=== PATIENT | female | born 1985 | race Caucasian/White ===

== ENCOUNTER 2017-08-25 14:16 | Emergency (ER) | payer OTHER ==
[~2017-08-25] VITALS: Ht 149.9 cm; Wt 49.1 kg
[2017-08-25 14:18] VITALS: TEMP 36.4; Ht 149.9 cm; Wt 49.1 kg
[2017-08-25] MEDS ORDERED: ALBUT/IPRATROP 3MG/0.5MG NEB 3 ML VIAL INH STA (14:35)
[2017-08-25 14:49] LABS: BASO % 0.1 %; BASO ABS # 0.01 K/uL (0-0.2); EOS % 0.6 %; EOS ABS # 0.05 K/uL (0-0.5); HEMATOCRIT 40.7 % (37-47); HEMOGLOBIN 14.5 g/dL (12.0-16.0); IG# 0.03 K/uL (0.00-0.02); LYMPH % 22.9 %; LYMPH ABS # 1.89 K/uL (1.2-3.4); MEAN CELL VOLUME 82.4 fL (80-100); MEAN CORPUSCULAR HEMOGLOBIN 29.4 pg (25-34); MEAN CORPUSCULAR HGB CONC 35.6 g/dl (32-36); MONO % 6.8 %; MONO ABS # 0.56 K/uL (0.11-0.59); NEUT % 69.2 %; NEUT ABS # 5.73 K/uL (1.4-6.5); PLATELET COUNT 256 K/uL (130-400); RED CELL DISTRIBUTION WIDTH SD 39.3 fL (36.4-46.3); WHITE BLOOD COUNT 8.27 K/uL (4.8-10.8)
[2017-08-25 14:59] VITALS: O2SAT 97
[2017-08-25 15:08] LABS: ALBUMIN 4.1 gm/dl (3.4-5.0); ALT/SGPT 36 U/L (12-78); AST/SGOT 9 U/L (15-37); BLOOD UREA NITROGEN 8 mg/dl (7-18); CALCIUM 9.4 mg/dl (8.5-10.1); CARBON DIOXIDE 22 mmol/L (21-32); CREATININE 0.55 mg/dl (0.60-1.20); GLUCOSE 156 mg/dl (70-99); POTASSIUM 3.9 mmol/L (3.5-5.1); SODIUM 134 mmol/L (136-145)
[2017-08-25 15:13] LABS: ALKALINE PHOSPHATASE 70 U/L (45-117); TOTAL PROTEIN 7.6 gm/dl (6.4-8.2)
[2017-08-25] MEDS ORDERED: METO25TA56 PO (15:24)
[2017-08-25] MEDS ORDERED: NVLG SC (15:24)
[2017-08-25] MEDS ORDERED: LSN25 PO (15:24)
[2017-08-25] MEDS ORDERED: LVMI SC (15:24)
[2017-08-25] MEDS ORDERED: SITA50TA3 PO (15:24)
[2017-08-25] MEDS ORDERED: METF-384 PO (15:24)
[2017-08-25] MEDS ORDERED: BUSP15TA70 PO (15:24)
[2017-08-25] MEDS ORDERED: CITA40TA4 PO (15:24)
--- NOTE | 2017-08-25 15:41 | EMERGENCY ROOM VISIT NOTE ---
ED Visit Note First contact with patient: 14:25 CHIEF COMPLAINT: Shortness of breath HISTORY OF PRESENTING ILLNESS: This is a 32-year-old female with past medical history of neurofibromatosis, hypertension, depression, scoliosis, and insulin- dependent type 2 diabetes who presents to the emergency department with complaint of shortness of breath and chest tightness for the past 3 days. Patient states her symptoms have been constant, shortness of breath is worse with exertion. She describes the chest pain as pressure and tightness, constant , in the middle of her chest, worse with coughing, better with rest, 7/10. She denies any fevers or chills. The cough is not productive and she denies any hemoptysis. Patient recently relocated to this area from [place], stating that she drove here about 1 month ago. She is concerned because she has run out of her insulin medications for treating her diabetes about 1 month ago as well and she has not yet been established with a PCP. She states that she was taking Levemir and Novolin, as well as metformin and Januvia for her diabetes. She states that she has a limited amount of her oral medications and has been "spacing these out to make them last longer." She does state that she has been checking her blood sugars at home and these have been doing okay, she states her most recent blood sugar checked yesterday was 167. She reports a history of DKA in the past. She does report along with her cough and shortness of breath that she has also had some symptoms of nausea and diarrhea for the past 3 days, she denies any vomiting. She denies any other symptoms of headache, neck pain, back pain, abdominal pain, urinary symptoms, or rash. REVIEW OF SYSTEMS: A complete 10 point review of systems was reviewed with the patient with pertinent positives and negatives as per history of present illness. All else were negative. PAST MEDICAL HISTORY: Reviewed in chart. SOCIAL HISTORY: Lives at home with significant other. She is a current everyday smoker. She denies alcohol or recreational drug use. ALLERGIES: No known allergies. PHYSICAL EXAM: CONSTITUTIONAL: Pleasant and cooperative. No acute distress. Mildly dehydrated. Cachectic. HEENT: Normocephalic, atraumatic. Pupils equal, round and reactive to light, EOMI. TMs normal. Pharynx normal. Tacky mucous membranes. NECK: Supple, full active range of motion without discomfort. RESPIRATORY: Diminished in bases, but otherwise clear to auscultation bilaterally with no wheezing, crackles, rhonchi or stridor. Equal expansion bilaterally. CARDIOVASCULAR: Regular rate and rhythm with no murmurs, rubs or gallops. Normal peripheral perfusion. No edema. GASTROINTESTINAL: Soft, nontender, nondistended. No palpable masses or HSM. Bowel sounds present in all quadrants. MUSCULOSKELETAL: Full range of motion of all joints without discomfort. INTEGUMENTARY: Multiple scabbed lesions on the arms and legs, no erythema, swelling, tenderness to palpation, or drainage noted. NEUROLOGIC: Alert and oriented X 4 with normal affect. Cranial nerves II-XII grossly intact. No focal neurologic deficits noted. Normal strength and sensation in all 4 extremities. Normal speech. ED COURSE AND MEDICAL DECISION MAKING: CC: Patient presenting with complaint of shortness of breath, cough, chest pain DIFFERENTIAL DIAGNOSIS: Includes, but not limited to acute coronary syndrome, pulmonary embolism, pneumothorax, pericarditis, pneumonia, bronchitis, COPD exacerbation, anxiety, musculoskeletal pain, GERD, dehydration, electrolyte abnormality, DKA, among others. INTERPRETATION OF LABS: No leukocytosis, no anemia, no significant electrolyte abnormalities, normal renal function, normal liver enzymes and lipase. Negative troponin. Negative d-dimer. UA shows trace ketones, no glucose, and no infection. Urine negative. IMAGING: CHEST 2 VIEWS ROUTINE CLINICAL HISTORY: EVALUATE RESPIRATORY DISTRESS.DYSPNEA COMPARISON STUDY: No previous studies for comparison. FINDINGS: The bones soft tissues and hemidiaphragms are normal. The cardiomediastinal silhouette is normal. The lungs are clear. The pulmonary vasculature is normal. IMPRESSION: Negative chest. EKG: Shows normal sinus rhythm with a rate of 81 bpm, no acute ischemic changes noted by my interpretation. No previous EKGs available for comparison. MEDICATION RECONCILIATION: I attest that I have personally reviewed the patient 's current medication list. INITIAL VITAL SIGNS REVIEW: I reviewed the patient's initial vital signs and interpret them as follows: T: Afebrile; BP: Normotensive; HR: Within normal limits; RR: Within normal limits; Pulse Ox: Within normal limits on room air. Blood pressure screening: The patient was found to have normal blood pressure on screening and does not require follow-up for repeat blood pressure check. SUMMARY: Patient was evaluated at bedside, history and physical exam performed. Patient is alert and oriented, no acute distress, resting calmly a stretcher. She is cachectic appearing and appears mildly dehydrated. 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 Lungs are diminished but otherwise clear. Orders were placed at bedside for labs, UA and urine , PO fluids for hydration, chest x-ray, EKG to evaluate for chest pain and shortness of breath. Patient discussed with Dr. Hook, who agrees with my assessment and plan. Labs and imaging reviewed as above, unremarkable. No evidence of DKA. Patient symptoms seem consistent with an acute bronchitis, given her worsening cough and chest tightness. She does report improved symptoms after DuoNeb treatment. Patient reassessed multiple times throughout ED stay, she reports that she is feeling much better. She is tolerating PO hydration well. She was provided with an albuterol inhaler to use at home. Oleksandr with case management also spoke with the patient to assist her in establishing PCP follow-up. Patient was updated on all results and plan for discharge, and she was encouraged to continue seeking PCP for follow-up. I did explain to the patient that she should have prescriptions refilled and monitored by a PCP, and that I would not refill her insulin today. Patient was also given strict return precautions should her symptoms worsen, she verbalized understanding. Patient was discharged home in stable condition and ambulatory. Current/Historical Medications Scheduled Buspirone Hcl (Buspar), 15 MG PO DAILY Citalopram (Citalopram Hydrobromide), 40 MG PO DAILY Insulin Aspart (Novolog), Unknown Dose SC DIRECTED Insulin Detemir (Levemir), 40 UNITS SC HS Lisinopril (Lisinopril), 2.5 MG PO DAILY Metformin Hcl (Glucophage), 1,000 MG PO BID Metoprolol Tartrate (Lopressor) (Lopressor), 12.5 MG PO BID Sitagliptin (Januvia), 50 MG PO DAILY Allergies Coded Allergies: No Known Allergies (Unverified , 08/25/17) Vital Signs Date Time Temp Pulse Resp B/P (MAP) Pulse Ox O2 Delivery O2 Flow Rate FiO2 08/25/17 16:30 88 18 112/70 98 Room Air 08/25/17 15:06 83 08/25/17 14:59 97 Room Air 08/25/17 14:18 36.4 87 18 122/81 97 Room Air Laboratory Results 08/25/17 14:42 Red Blood Count 4.94, Mean Corpuscular Volume 82.4, Mean Corpuscular Hemoglobin 29.4, Mean Corpuscular Hemoglobin Concent 35.6, Mean Platelet Volume 10.0, Neutrophils (%) (Auto) 69.2, Lymphocytes (%) (Auto) 22.9, Monocytes (%) (Auto) 6.8, Eosinophils (%) (Auto) 0.6, Basophils (%) (Auto) 0.1, Neutrophils # (Auto) 5.73, Lymphocytes # (Auto) 1.89, Monocytes # (Auto) 0.56, Eosinophils # (Auto) 0.05, Basophils # (Auto) 0.01 08/25/17 14:42 Test 08/25/17 14:40 08/25/17 14:42 08/25/17 15:08 Urine Color DK YELLOW Urine Appearance CLOUDY (CLEAR) Urine pH 6.5 (4.5-7.5) Urine Specific [place] 1.025 (1.000-1.030) Urine Protein NEG (NEG) Urine Glucose (UA) NEG (NEG) Urine Ketones TRACE (NEG) Urine Occult Blood NEG (NEG) Urine Nitrite NEG (NEG) Urine Bilirubin NEG (NEG) Urine Urobilinogen NEG (NEG) Urine Leukocyte Esterase NEG (NEG) Urine WBC (Auto) 1-5 /hpf (0-5) Urine RBC (Auto) 0-4 /hpf (0-4) Urine Hyaline Casts (Auto) 1-5 /lpf (0-5) Urine Epithelial Cells (Auto) >30 /lpf (0-5) Urine Bacteria (Auto) 1+ (NEG) Urine Test NEG (NEG) White Blood Count 8.27 K/uL (4.8-10.8) Red Blood Count 4.94 M/uL (4.2-5.4) Hemoglobin 14.5 g/dL (12.0-16.0) Hematocrit 40.7 % (37-47) Mean Corpuscular Volume 82.4 fL (80-100) Mean Corpuscular Hemoglobin 29.4 pg (25-34) Mean Corpuscular Hemoglobin Concent 35.6 g/dl (32-36) Platelet Count 256 K/uL (130-400) Mean Platelet Volume 10.0 fL (7.4-10.4) Neutrophils (%) (Auto) 69.2 % Lymphocytes (%) (Auto) 22.9 % Monocytes (%) (Auto) 6.8 % Eosinophils (%) (Auto) 0.6 % Basophils (%) (Auto) 0.1 % Neutrophils # (Auto) 5.73 K/uL (1.4-6.5) Lymphocytes # (Auto) 1.89 K/uL (1.2-3.4) Monocytes # (Auto) 0.56 K/uL (0.11-0.59) Eosinophils # (Auto) 0.05 K/uL (0-0.5) Basophils # (Auto) 0.01 K/uL (0-0.2) RDW Standard Deviation 39.3 fL (36.4-46.3) RDW Coefficient of Variation 13.0 % (11.5-14.5) Immature Granulocyte % (Auto) 0.4 % Immature Granulocyte # (Auto) 0.03 K/uL (0.00-0.02) D-Dimer < 190 ug/L FEU (0-500) Anion Gap 10.0 mmol/L (3-11) Est Creatinine Clear Calc Drug Dose 101.2 ml/min Estimated GFR () 144.9 Estimated GFR (Non- 125.0 BUN/Creatinine Ratio 15.5 (10-20) Calcium Level 9.4 mg/dl (8.5-10.1) Total Bilirubin 0.4 mg/dl (0.2-1) Aspartate Amino Transf (AST/SGOT) 9 U/L (15-37) Alanine Aminotransferase (ALT/SGPT) 36 U/L (12-78) Alkaline Phosphatase 70 U/L (45-117) Troponin I < 0.015 ng/ml (0-0.045) Total Protein 7.6 gm/dl (6.4-8.2) Albumin 4.1 gm/dl (3.4-5.0) Globulin 3.5 gm/dl (2.5-4.0) Albumin/Globulin Ratio 1.2 (0.9-2) Bedside Glucose 149 mg/dl (70-90) Medications Administered Medications (Trade) Dose Ordered Sig/Song Route Start Time Stop Time Status Last Admin Dose Admin Albuterol/ Ipratropium (Duoneb) 3 ml NOW STAT INH 08/25/17 14:35 08/25/17 14:40 DC 08/25/17 15:14 3 ML Departure Information Impression Primary Impression: Bronchitis Dispostion Home / Self-Care Condition GOOD Referrals No Doctor, Assigned (PCP) Patient Instructions ED Bronchitis Asthmatic, ED Diabetes General Info, ED Diet Diabetic, ED URI Viral, My [facility] Additional Instructions You have been evaluated in the emergency department for your cough and chest pain. There is no evidence of pneumonia on your chest x-ray. Use the albuterol inhaler TWO puffs every 4 hours as needed for cough, wheezing , chest tightness. You should also use this before bed to help prevent coughing so that you can sleep better at night. For chest pain, you can use the following [id number] medicines (if >12 yo) : - Regular strength (325mg/tab) Tylenol (acetaminophen) 2 tabs every 4-6 hours as needed. Do not exceed 10 tablets in a 24 hour period. Avoid taking more than 3000 mg of Tylenol per day. This includes any other sources of acetaminophen you may take on a regular basis. - Regular strength (200 mg/tab) Advil (ibuprofen) 3 tabs every 6-8 hours as needed. Do not exceed a dose of 2400 mg per day. - For best results, alternate dosing of Tylenol and Advil. Apply heating pad to your chest to help with discomfort. Drink plenty of fluids to stay well hydrated. Please follow-up with your PCP in the next few days to be rechecked if your symptoms are not getting any better. You will also need to see a primary care provider to get refills of your chronic medications. Please return to the emergency department if your symptoms worsen, including excessive wheezing or inability to catch your breath; worsening chest pain, coughing up blood, persistent vomiting and unable to keep down fluids, severe dizziness or passing out; fever or pain that becomes unmanageable with over-the- counter medications; or any other concerns.
--- NOTE | 2017-08-25 15:45 | DIAGNOSTIC IMAGING REPORT ---
CHEST 2 VIEWS ROUTINE CLINICAL HISTORY: EVALUATE RESPIRATORY DISTRESS.DYSPNEA COMPARISON STUDY: No previous studies for comparison. FINDINGS: The bones soft tissues and hemidiaphragms are normal. The cardiomediastinal silhouette is normal. The lungs are clear. The pulmonary vasculature is normal. IMPRESSION: Negative chest. The above report was generated using voice recognition software. It may contain grammatical, syntax or spelling errors. Electronically signed by: Miko Lee M.D. 08/25/2017 3:44 PM Dictated Date/Time: 08/25/2017 3:44 PM
[2017-08-25 16:30] VITALS: BP 112/70; PULSE 88; O2SAT 98
[2017-08-25] MEDS ORDERED: ALBUTEROL HFA 8 GM INHALER INH ONE (16:30)
[2017-08-25] MEDS ORDERED: FENTANYL CITRATE INJ 50 MCG/1 ML 2 ML VIAL IV STA (17:12)
== END 2017-08-25 17:02 | disposition home or self-care (01) ==
LOC: C.EDB 14:18
DX: J40 Bronchitis, not specified as acute or chronic (principal); F17.200 Nicotine dependence, unspecified, uncomplicated

== ENCOUNTER → 2017-08-28 | Outpatient (CLI) | payer OTHER ==
[~2017-08-28] MED LIST: BUSP15TA70 PO; CITA40TA4 PO; LSN25 PO; LVMI SC; METF-384 PO; METO25TA56 PO; NVLG SC; SITA50TA3 PO
[2017-08-28 15:09] LABS: ALBUMIN 4.3 gm/dl (3.4-5.0); ALT/SGPT 29 U/L (12-78); BLOOD UREA NITROGEN 6 mg/dl (7-18); CALCIUM 9.5 mg/dl (8.5-10.1); CARBON DIOXIDE 22 mmol/L (21-32); CHOLESTEROL 163 mg/dl (0-200); CREATININE 0.41 mg/dl (0.60-1.20); GLUCOSE 104 mg/dl (70-99); POTASSIUM 4.2 mmol/L (3.5-5.1); SODIUM 134 mmol/L (136-145)
[2017-08-28 15:12] LABS: ALKALINE PHOSPHATASE 67 U/L (45-117); AST/SGOT 13 U/L (15-37); LDL CHOLESTEROL CALCULATED 90 mg/dl; TOTAL PROTEIN 7.8 gm/dl (6.4-8.2)
[2017-08-29 06:29] LABS: HEMOGLOBIN A1C 9.3 % (4.5-5.6)
== END | disposition home or self-care (01) ==
LOC: C.LAB 12:49
PROVIDERS: ATTEND Family Medicine
DX: E13.8 Other specified diabetes mellitus with unspecified complications (principal)

== ENCOUNTER 2017-10-05 20:38 | Emergency (ER) | payer OTHER ==
[~2017-10-05] VITALS: Ht 149.9 cm; Wt 49.9 kg
[2017-10-05 20:46] VITALS: TEMP 36.6; Ht 149.9 cm; Wt 49.9 kg
[2017-10-05] MEDS ORDERED: KETOROLAC TROMETHAMINE 30 MG/ML VIAL IV STA (22:02)
[2017-10-05] MEDS ORDERED: OPTIRAY 320 IV PRN (22:15)
[2017-10-05] MEDS ORDERED: INSU100I23 (22:35)
[2017-10-05] MEDS ORDERED: SRQ25 PO (22:35)
[2017-10-05 22:43] LABS: BASO % 0.4 %; BASO ABS # 0.03 K/uL (0-0.2); EOS % 0.9 %; EOS ABS # 0.07 K/uL (0-0.5); HEMATOCRIT 37.9 % (37-47); HEMOGLOBIN 13.7 g/dL (12.0-16.0); IG# 0.03 K/uL (0.00-0.02); LYMPH % 37.7 %; LYMPH ABS # 2.78 K/uL (1.2-3.4); MEAN CELL VOLUME 83.5 fL (80-100); MEAN CORPUSCULAR HEMOGLOBIN 30.2 pg (25-34); MEAN CORPUSCULAR HGB CONC 36.1 g/dl (32-36); MONO % 5.6 %; MONO ABS # 0.41 K/uL (0.11-0.59); NEUT ABS # 4.05 K/uL (1.4-6.5); PLATELET COUNT 228 K/uL (130-400); WHITE BLOOD COUNT 7.37 K/uL (4.8-10.8)
[2017-10-05 22:52] LABS: CALCIUM 9.3 mg/dl (8.5-10.1); CREATININE 0.52 mg/dl (0.60-1.20); POTASSIUM 3.8 mmol/L (3.5-5.1)
--- NOTE | 2017-10-05 23:18 | DIAGNOSTIC IMAGING REPORT ---
CT SCAN OF THE NECK WITH IV CONTRAST CLINICAL HISTORY: Right posterior neck pain. Clinical concern for abscess. COMPARISON STUDY: No priors. TECHNIQUE: Following the IV administration of 94 cc of Optiray 320, CT scan of the soft tissues of the neck was performed from the skull base to the upper chest. Images are reviewed in the axial, sagittal, and coronal planes. IV contrast was administered without complication. A dose lowering technique was utilized adhering to the principles of ALARA. CT DOSE: 357.74 mGy.cm FINDINGS: Soft tissues: The soft tissues are normal in appearance. There is abnormality identified in the right posterior neck deep to the marker at the indicated site of interest. There is mild induration of the subcutaneous fat in the occipital scalp seen on image #26. Pharynx: The nasopharynx, oropharynx, and laryngeal pharynx are normal in appearance. The pharyngeal airway is widely patent. There is no evidence of mass lesion. The vocal cords are symmetric. The parapharyngeal fat is well maintained. The prevertebral/retropharyngeal soft tissues are within normal limits. The epiglottis is normal. Lymphadenopathy: No cervical lymphadenopathy is seen Thyroid: Normal in size and attenuation. Salivary glands: The parotid and submandibular glands are within normal limits. Brain parenchyma: The visualized brain parenchyma at the skull base is normal in appearance. Vascular structures: The carotid arteries and jugular veins are patent bilaterally. Skeletal structures: Imaged portions of the calvarium at the skull base are within normal limits. The cervical spine appears intact. Sinuses and mastoids: The visualized paranasal sinuses are clear. There is a trace left mastoid effusion. The right mastoid air cells are well pneumatized. Lung apices: Emphysematous change is noted in the upper lobes. The imaged upper lobe lung parenchyma is otherwise clear. IMPRESSION: 1. No abnormality identified in the right posterior neck at the indicated site of interest. Specifically, there is no evidence of abscess. 2. There is mild induration of the subcutaneous fat in the right occipital scalp. This is nonspecific represent a small contusion. Correlate clinically for evidence of cellulitis. 3. Emphysema. Electronically signed by: Brock Christiansen M.D. 10/05/2017 11:16 PM Dictated Date/Time: 10/05/2017 11:10 PM
[2017-10-05] MEDS ORDERED: AMOX875T PO (23:31)
[2017-10-05] MEDS ORDERED: TRAM-10 PO (23:31)
[2017-10-05 23:44] VITALS: BP 156/98; PULSE 69; O2SAT 99
[2017-10-05] MEDS ORDERED: TRAMADOL HCL 50 MG HOME PACK PO ONE (23:45)
[2017-10-05] MEDS ORDERED: AMOXICIL/CLAVU 875MG HOME PACK PO ONE (23:45)
--- NOTE | 2017-10-05 23:47 | EMERGENCY ROOM VISIT NOTE ---
History First contact with patient: 21:13 Chief Complaint: NECK PAIN Stated Complaint: BUMP ON BACK OF NECK, HE, BODYACHE, STIFF NECK History of Present Illness The patient is a 32 year old female who presents to the Emergency Room with complaints of right posterior neck pain for the past 2-3 days. The patient reports that she had a cyst excised approximately 3-4 months ago in [place]. She tested positive for MRSA at that time. The patient reports that she has also had recent cough, sneezing and runny nose. She has taken OTC medications which helps with her cough. She has not noticed any fevers or chills, sore throat, difficulty swallowing, chest pain or headache. She denies any pain extending down the back. She rates her discomfort a 9 out of 10. Review of Systems HEENT: Denies dizziness, visual problems, hearing loss, tinnitus. Denies difficulty swallowing or oral lesions. PULMONARY: Denies sputum production or hemoptysis. CARDIOVASCULAR: Denies chest pain, palpitations, dyspnea on exertion, orthopnea or peripheral edema. GASTROINTESTINAL: Denies diarrhea, constipation, nausea, vomiting, or abdominal pain. GENITOURINARY: Denies dysuria, frequency, urgency or nocturia. NEUROLOGIC: Denies history of epilepsy, CVA, TIA or chronic headaches. MUSCULOSKELETAL: Denies history of joint tenderness/swelling. SKIN: Denies rashes or lesions. PSYCHIATRIC: History of depression and anxiety. ENDOCRINE: History of diabetes. Past Medical/Surgical History Medical Problems: (1) Anxiety (2) Depression (3) Diabetes (4) Hypertension (5) Neurofibromatosis (6) Tobacco use disorder Family History FH: cancer FH: diabetes mellitus FH: heart disease FH: hypertension Social History Smoking Status: Current Every Day Smoker Alcohol Use: none Drug Use: none Marital Status: single Housing Status: lives with friends Occupation Status: unemployed Current/Historical Medications Scheduled Amoxicillin & Pot Clavulanate (Augmentin 875-125 mg), 1 TAB PO BID Buspirone Hcl (Buspar), 15 MG PO DAILY Citalopram (Citalopram Hydrobromide), 40 MG PO DAILY Lisinopril (Lisinopril), 2.5 MG PO DAILY Metformin Hcl (Glucophage), 1,000 MG PO BID Metoprolol Tartrate (Lopressor) (Lopressor), 12.5 MG PO BID Quetiapine Fumarate (Quetiapine Fumarate), 25 MG PO HS Sitagliptin (Januvia), 50 MG PO DAILY Scheduled PRN Tramadol (Ultram), 1-2 TAB PO Q4H PRN for Pain Miscellaneous Medications Insulin Glargine (Basaglar Kwikpen) Physical Exam Vital Signs Date Time Temp Pulse Resp B/P (MAP) Pulse Ox O2 Delivery O2 Flow Rate FiO2 10/05/17 22:15 78 16 131/92 98 Room Air 10/05/17 20:46 36.6 98 18 125/86 98 Room Air Physical Exam CONSTITUTIONAL: Healthy and well nourished. Alert and oriented X 3 with flat affect. HEENT: Normocephalic, atraumatic. Pupils equal, round and reactive. Ears and nares are clear. No rhinorrhea or conjunctival injection. OROPHARYNX: No posterior pharyngeal erythema, tonsillar hypertrophy, trismus or evidence of retropharyngeal abscess/Musa's angina. NECK: Full active range of motion without discomfort. Negative Kernig's, negative Brudzinski sign. LYMPHATICS: No posterior or anterior cervical chain adenopathy. RESPIRATORY: Clear to auscultation bilaterally with no wheezing, crackles, rhonchi or stridor. CARDIOVASCULAR: Regular rate and rhythm with no murmurs, rubs or gallops. MUSCULOSKELETAL: Full range of motion of all joints without discomfort. INTEGUMENTARY: Examination of the posterior neck region does not show any overriding tissue erythema or induration. No other skin lesions, pustules, vesicles or desquamation noted. The patient has generalized tenderness to palpation of the entire posterior neck region. NEUROLOGIC: Cranial nerves II-XII grossly intact. No focal neurologic deficits noted. Medical Decision & Procedures ER Provider Diagnostic Interpretation: CT of the neck with IV contrast does not show any fluid collections. Radiologist report is as follows: CT SCAN OF THE NECK WITH IV CONTRAST CLINICAL HISTORY: Right posterior neck pain. Clinical concern for abscess. COMPARISON STUDY: No priors. TECHNIQUE: Following the IV administration of 94 cc of Optiray 320, CT scan of the soft tissues of the neck was performed from the skull base to the upper chest. Images are reviewed in the axial, sagittal, and coronal planes. IV contrast was administered without complication. A dose lowering technique was utilized adhering to the principles of ALARA. CT DOSE: 357.74 mGy.cm FINDINGS: Soft tissues: The soft tissues are normal in appearance. There is abnormality identified in the right posterior neck deep to the marker at the indicated site of interest. There is mild induration of the subcutaneous fat in the occipital scalp seen on image #26. Pharynx: The nasopharynx, oropharynx, and laryngeal pharynx are normal in appearance. The pharyngeal airway is widely patent. There is no evidence of mass lesion. The vocal cords are symmetric. The parapharyngeal fat is well maintained. The prevertebral/retropharyngeal soft tissues are within normal limits. The epiglottis is normal. Lymphadenopathy: No cervical lymphadenopathy is seen Thyroid: Normal in size and attenuation. Salivary glands: The parotid and submandibular glands are within normal limits. Brain parenchyma: The visualized brain parenchyma at the skull base is normal in appearance. Vascular structures: The carotid arteries and jugular veins are patent bilaterally. Skeletal structures: Imaged portions of the calvarium at the skull base are within normal limits. The cervical spine appears intact. Sinuses and mastoids: The visualized paranasal sinuses are clear. There is a trace left mastoid effusion. The right mastoid air cells are well pneumatized. Lung apices: Emphysematous change is noted in the upper lobes. The imaged upper lobe lung parenchyma is otherwise clear. IMPRESSION: 1. No abnormality identified in the right posterior neck at the indicated site of interest. Specifically, there is no evidence of abscess. 2. There is mild induration of the subcutaneous fat in the right occipital scalp. This is nonspecific represent a small contusion. Correlate clinically for evidence of cellulitis. 3. Emphysema. Laboratory Results 10/05/17 22:15 Red Blood Count 4.54, Mean Corpuscular Volume 83.5, Mean Corpuscular Hemoglobin 30.2, Mean Corpuscular Hemoglobin Concent 36.1, Neutrophils (%) (Auto) 55.0, Lymphocytes (%) (Auto) 37.7, Monocytes (%) (Auto) 5.6, Eosinophils (%) (Auto) 0.9, Basophils (%) (Auto) 0.4, Neutrophils # (Auto) 4.05, Lymphocytes # (Auto) 2.78, Monocytes # (Auto) 0.41, Eosinophils # (Auto) 0.07, Basophils # (Auto) 0.03 10/05/17 22:15 Test 10/05/17 22:15 White Blood Count 7.37 K/uL (4.8-10.8) Red Blood Count 4.54 M/uL (4.2-5.4) Hemoglobin 13.7 g/dL (12.0-16.0) Hematocrit 37.9 % (37-47) Mean Corpuscular Volume 83.5 fL (80-100) Mean Corpuscular Hemoglobin 30.2 pg (25-34) Mean Corpuscular Hemoglobin Concent 36.1 g/dl (32-36) Platelet Count 228 K/uL (130-400) Neutrophils (%) (Auto) 55.0 % Lymphocytes (%) (Auto) 37.7 % Monocytes (%) (Auto) 5.6 % Eosinophils (%) (Auto) 0.9 % Basophils (%) (Auto) 0.4 % Neutrophils # (Auto) 4.05 K/uL (1.4-6.5) Lymphocytes # (Auto) 2.78 K/uL (1.2-3.4) Monocytes # (Auto) 0.41 K/uL (0.11-0.59) Eosinophils # (Auto) 0.07 K/uL (0-0.5) Basophils # (Auto) 0.03 K/uL (0-0.2) Immature Granulocyte % (Auto) 0.4 % Immature Granulocyte # (Auto) 0.03 K/uL (0.00-0.02) Erythrocyte Sedimentation Rate 13 mm/hr (0-21) Anion Gap 7.0 mmol/L (3-11) Est Creatinine Clear Calc Drug Dose 107.0 ml/min Estimated GFR () 147.6 Estimated GFR (Non- 127.3 BUN/Creatinine Ratio 16.3 (10-20) Calcium Level 9.3 mg/dl (8.5-10.1) The above labs were reviewed and were grossly normal. Medications Administered Medications (Trade) Dose Ordered Sig/Song Route Start Time Stop Time Status Last Admin Dose Admin Ketorolac Tromethamine (Toradol Inj) 30 mg NOW STAT IV 10/05/17 22:02 10/05/17 22:03 DC 10/05/17 22:14 30 MG ED Course Patient history and physical exam were performed. Nurse's notes were reviewed. Vital signs were reviewed and were normal. IV access was established, and labs were drawn. The patient was administered IV Toradol for pain. Review of labs did not show any significant abnormalities. CT of the neck with IV contrast was also performed to show no evidence for fluid collections or other concerning findings. I discussed several different possibilities of this pain with the patient. It sounds like she does have a current viral upper respiratory infection. I did elect to treat the patient empirically with Augmentin. I explained that I do not suspect MRSA as the patient has no skin erythema or abscess formation on CT. She was encouraged to intermittently apply heat to the neck. The patient was also provided a prescription for Ultram as needed for breakthrough pain. She was encouraged to follow-up with her PCP in the next 2-3 days for recheck. Return over the weekend for any significant worsening symptoms. The patient voiced understanding of all discharge instructions, was happy with plan of care , and rated her discomfort a 6 out of 10 at the conclusion of my exam. Medical Decision See previous section [place] Drug Monitoring Program Search Results: patient reviewed within database, no issues identified Medication Reconcilliation Current Medication List: was personally reviewed by me Blood Pressure Screening Patient's blood pressure: Normal blood pressure Impression Primary Impression: Upper respiratory infection Additional Impression: Neck pain Departure Information Dispostion Home / Self-Care Prescriptions Tramadol (Ultram) 50 Mg Tab 1-2 TAB PO Q4H Y for Pain, #20 TAB For Initial Treatment Prov: Ilia Maurice PA 10/05/17 Amoxicillin & Pot Clavulanate (Augmentin 875-125 mg) 1 Tab Tab 1 TAB PO BID for 10 Days, #20 TAB Prov: Ilia Maurice PA 10/05/17 Forms WORK / SCHOOL INSTRUCTIONS, HOME CARE DOCUMENTATION FORM, IMPORTANT VISIT INFORMATION Patient Instructions My [facility] Additional Instructions Intermittently apply heat to the neck. Take Augmentin antibiotics as prescribed. Ibuprofen 800 mg and/or Tylenol 1000 mg every 8 hours. You may also alternate these medications for more effective pain relief: Ibuprofen --4 HRS--> Tylenol --4 HRS--> ibuprofen --4 HRS--> Tylenol .... Ultram if needed for worse pain. Follow-up with your family doctor in 2-3 days for reevaluation. Problem Qualifiers Primary Impression: Upper respiratory infection URI type: unspecified viral URI Qualified Codes: J06.9 - Acute upper respiratory infection, unspecified
== END 2017-10-05 23:46 | disposition home or self-care (01) ==
LOC: C.EDB 20:40 → C.EDC 23:46
DX: M54.2 Cervicalgia (principal); J06.9 Acute upper respiratory infection, unspecified; F41.9 Anxiety disorder, unspecified; F32.9 Major depressive disorder, single episode, unspecified; I10 Essential (primary) hypertension; E11.9 Type 2 diabetes mellitus without complications; Z79.84 Long term (current) use of oral hypoglycemic drugs; F17.200 Nicotine dependence, unspecified, uncomplicated

== ENCOUNTER 2017-10-08 15:20 | Emergency (ER) | payer OTHER ==
[~2017-10-08] VITALS: Ht 151.1 cm; Wt 50.8 kg
[~2017-10-08 15:20] MED LIST changes: +AMOX875T PO; +INSU100I23; -LVMI SC; -NVLG SC; +SRQ25 PO; +TRAM-10 PO
[2017-10-08 15:22] VITALS: TEMP 36.6; Ht 151.1 cm; Wt 50.8 kg
[2017-10-08] MEDS ORDERED: METHYLPREDNISOLONE 125 MG VIAL IV STA (15:47)
[2017-10-08] MEDS ORDERED: SODIUM CHLORIDE 0.9% 1000ML 2,000 ML IV STA (15:47)
[2017-10-08] MEDS ORDERED: KETOROLAC TROMETHAMINE 30 MG/ML VIAL IV STA (15:47)
--- NOTE | 2017-10-08 15:58 | EMERGENCY ROOM VISIT NOTE ---
History Report prepared by Manolo: Michel Tinsley Under the Supervision of: Dr. Pelon Solzi M.D. First contact with patient: 15:33 Chief Complaint: SHORTNESS OF BREATH Stated Complaint: SOB Nursing Triage Summary: pt here a few days ago dx with URI. given antibiotics. states feels worse, coughs alot has headache, back,neck and chest pain. states taking meds as prescribed. dry cough. sob, states has taken otc cough syrup. pt is a smoker History of Present Illness The patient is a 32 year old female who presents to the Emergency Room with complaints of persistent shortness of breath for the past 2 weeks. The patient states that she has been having chest pain, light headedness, neck pain, chills , nausea, diarrhea, and headaches. She states that she was in the ED yesterday for neck pain, and two weeks ago she was in for a cough, congestion, chest pain , and shortness of breath, and she states that the symptoms have gotten any better. She denies any vomiting, teeth pain, and jaw pain. The patient states that she she has been taking her antibiotics given yesterday. The patient states that she has a history of scoliosis, neurofibromatosis, and she had surgery on her neck for MRSA. The patient states that she smokes a half pack of cigarettes per day, and she denies any alcohol or drug use. She notes that she has had chest pain in the past, though it has never been this bad before. The patient denies any history of PE or DVTs, and she states that she has a family history of diabetes, heart disease, and cancer. Source of History: patient Onset: the past two weeks Position: other (generalized) Quality: other (shortness of breath) Timing: other (persistent) Associated Symptoms: + chills, + neck pain, + chest pain, + nausea, + diarrhea, No vomiting Review of Systems See HPI for pertinent positives and negatives. A total of ten systems were reviewed and were otherwise negative. Past Medical & Surgical Medical Problems: (1) Anxiety (2) Depression (3) Diabetes (4) Hypertension (5) Neurofibromatosis (6) Tobacco use disorder Family History FH: cancer FH: diabetes mellitus FH: heart disease FH: hypertension Social History Smoking Status: Current Every Day Smoker Alcohol Use: none Drug Use: none Marital Status: single Housing Status: lives with friends Occupation Status: unemployed Current/Historical Medications Scheduled Amoxicillin & Pot Clavulanate (Augmentin 875-125 mg), 1 TAB PO BID Buspirone Hcl (Buspar), 15 MG PO DAILY Citalopram (Citalopram Hydrobromide), 40 MG PO DAILY Doxycycline Hyclate (Doxycycline Hyclate), 1 CAP PO BID Lisinopril (Lisinopril), 2.5 MG PO DAILY Metformin Hcl (Glucophage), 1,000 MG PO BID Metoprolol Tartrate (Lopressor) (Lopressor), 12.5 MG PO BID Prednisone (Prednisone), 3 TAB PO DAILY Quetiapine Fumarate (Quetiapine Fumarate), 25 MG PO HS Saccharomyces Boulardii (Florastor), 1 CAP PO BID Sitagliptin (Januvia), 50 MG PO DAILY Scheduled PRN Tramadol (Ultram), 1-2 TAB PO Q4H PRN for Pain Miscellaneous Medications Insulin Glargine (Basaglar Kwikpen) Allergies Coded Allergies: No Known Allergies (Unverified , 10/05/17) Physical Exam Vital Signs Date Time Temp Pulse Resp B/P (MAP) Pulse Ox O2 Delivery O2 Flow Rate FiO2 10/08/17 18:05 118 18 117/68 99 10/08/17 16:49 110 14 108/65 100 10/08/17 16:23 96 10/08/17 16:09 89 14 100 Room Air 10/08/17 15:58 Room Air 10/08/17 15:30 Room Air 10/08/17 15:22 36.6 96 24 97/66 100 Room Air Physical Exam GENERAL: Awake, alert, fatigued and uncomfortable-appearing, mildly dyspneic, in no distress HENT: Normocephalic, atraumatic. Dry mucous membranes, poor dentition with extensive dental caries. Mild tenderness to the right lateral neck and occipital scalp with mild induration and mild tenderness. No warmth. EYES: Normal conjunctiva. Sclera non-icteric. NECK: Supple. No nuchal rigidity. FROM. No JVD. RESPIRATORY: Scant intermittent wheezes otherwise clear. CARDIAC: Tachycardic rate, normal rhythm. Extremities warm and well perfused. Pulses equal. ABDOMEN: Soft, non-distended. No tenderness to palpation. No rebound or guarding. No masses. RECTAL: Deferred. MUSCULOSKELETAL: Chest examination reveals no tenderness. The back is symmetrical on inspection without obvious abnormality. There is no CVA tenderness to palpation. No joint edema. LOWER EXTREMITIES: Calves are equal size bilaterally and non-tender. No edema. No discoloration. NEURO: Normal sensorium. No sensory or motor deficits noted. SKIN: Scattered excoriations on her arms and legs. No erythema or warmth. No jaundice noted. Medical Decision & Procedures ER Provider Diagnostic Interpretation: Radiology results as stated below per my review and radiologist interpretation: CHEST ONE VIEW PORTABLE CLINICAL HISTORY: 32 years-old Female presenting with CHEST PAIN. TECHNIQUE: Portable upright AP view of the chest was obtained. COMPARISON: 08/25/2017. FINDINGS: Cardiomediastinal silhouette normal. No focal opacity. No large effusion or pneumothorax. Osseous structures normal. Upper abdomen normal. IMPRESSION: 1. No acute cardiopulmonary disease. Electronically signed by: Nate Gilmore M.D. 10/08/2017 4:04 PM Dictated Date/Time: 10/08/2017 4:04 PM Laboratory Results 10/08/17 15:50 Red Blood Count 4.78, Mean Corpuscular Volume 83.1, Mean Corpuscular Hemoglobin 30.1, Mean Corpuscular Hemoglobin Concent 36.3, Mean Platelet Volume 10.7, Neutrophils (%) (Auto) 68.7, Lymphocytes (%) (Auto) 25.1, Monocytes (%) (Auto) 5.2, Eosinophils (%) (Auto) 0.8, Basophils (%) (Auto) 0.1, Neutrophils # (Auto) 5.19, Lymphocytes # (Auto) 1.90, Monocytes # (Auto) 0.39, Eosinophils # (Auto) 0.06, Basophils # (Auto) 0.01 10/08/17 15:50 Test 10/08/17 14:50 10/08/17 15:50 10/08/17 16:18 Human Chorionic Gonadotropin, Qual NEG (NEG) White Blood Count 7.56 K/uL (4.8-10.8) Red Blood Count 4.78 M/uL (4.2-5.4) Hemoglobin 14.4 g/dL (12.0-16.0) Hematocrit 39.7 % (37-47) Mean Corpuscular Volume 83.1 fL (80-100) Mean Corpuscular Hemoglobin 30.1 pg (25-34) Mean Corpuscular Hemoglobin Concent 36.3 g/dl (32-36) Platelet Count 242 K/uL (130-400) Mean Platelet Volume 10.7 fL (7.4-10.4) Neutrophils (%) (Auto) 68.7 % Lymphocytes (%) (Auto) 25.1 % Monocytes (%) (Auto) 5.2 % Eosinophils (%) (Auto) 0.8 % Basophils (%) (Auto) 0.1 % Neutrophils # (Auto) 5.19 K/uL (1.4-6.5) Lymphocytes # (Auto) 1.90 K/uL (1.2-3.4) Monocytes # (Auto) 0.39 K/uL (0.11-0.59) Eosinophils # (Auto) 0.06 K/uL (0-0.5) Basophils # (Auto) 0.01 K/uL (0-0.2) RDW Standard Deviation 38.7 fL (36.4-46.3) RDW Coefficient of Variation 12.8 % (11.5-14.5) Immature Granulocyte % (Auto) 0.1 % Immature Granulocyte # (Auto) 0.01 K/uL (0.00-0.02) Anion Gap 9.0 mmol/L (3-11) Est Creatinine Clear Calc Drug Dose 83.9 ml/min Estimated GFR () 135.1 Estimated GFR (Non- 116.6 BUN/Creatinine Ratio 14.7 (10-20) Calcium Level 8.6 mg/dl (8.5-10.1) Total Bilirubin 0.4 mg/dl (0.2-1) Direct Bilirubin < 0.1 mg/dl (0-0.2) Aspartate Amino Transf (AST/SGOT) 62 U/L (15-37) Alanine Aminotransferase (ALT/SGPT) 101 U/L (12-78) Alkaline Phosphatase 104 U/L (45-117) Troponin I < 0.015 ng/ml (0-0.045) Total Protein 7.6 gm/dl (6.4-8.2) Albumin 3.9 gm/dl (3.4-5.0) Lipase 91 U/L (73-393) D-Dimer < 190 ug/L FEU (0-500) Laboratory results reviewed by me Medications Administered Medications (Trade) Dose Ordered Sig/Song Route Start Time Stop Time Status Last Admin Dose Admin Methylprednisolone Sodium Succinate (Solu-Medrol IV) 125 mg NOW STAT IV 10/08/17 15:47 10/08/17 15:52 DC 10/08/17 16:05 125 MG Albuterol/ Ipratropium (Duoneb) 12 ml ONE ONCE INH 10/08/17 16:00 10/08/17 16:01 DC 10/08/17 16:09 12 ML Sodium Chloride 2,000 ml @ 999 mls/hr Q2H1M STAT IV 10/08/17 15:47 10/08/17 17:47 DC 10/08/17 16:05 999 MLS/HR Ketorolac Tromethamine (Toradol Inj) 15 mg NOW STAT IV 10/08/17 15:47 10/08/17 15:52 DC 10/08/17 16:05 15 MG Miscellaneous Information (Nursing Verbal Med Order) 1 ea ONE ONCE N/A 10/08/17 16:45 10/08/17 16:46 DC 10/08/17 16:45 1 EA Ondansetron HCl (Zofran Inj) 4 mg STK-MED ONCE .ROUTE 10/08/17 16:48 10/08/17 16:49 DC 10/08/17 16:51 4 MG Doxycycline Hyclate (Vibramycin Cap) 100 mg ONE STAT PO 10/08/17 17:27 10/08/17 17:38 DC 10/08/17 18:02 100 MG ECG Per My Interpretation Indication: chest pain, SOB/dyspnea Rate (beats per minute): 99 Rhythm: sinus rhythm Findings: no acute ischemic change, other (normal axis, poor baseline) ED Course 1533: The patient was evaluated in room C10. A complete history and physical exam was performed. Medical Decision I reviewed the patient's past medical history, medications, and the nursing notes as described above. Differential diagnosis: Etiologies such as cardiac ischemia, aortic dissection, pulmonary embolism, pneumonia, pneumothorax, musculoskeletal, infections, pericarditis, myocarditis , esophageal rupture, gastrointestinal, as well as others were entertained. The patient is a 32-year-old woman with a past medical history of a deep MRSA neck infection treated with surgical debridement several months ago now presents emergency department for cough, congestion and shortness of breath in the setting of being seen in the ED 08/25 for bronchitis and yesterday 10/07 for URI per hpi. The patient is a chronic smoker. On arrival the patient is fatigued mildly dyspneic but no acute distress, afebrile stable vital signs. On exam the patient has scattered wheezes. She was given IV fluids, steroids and continuous DuoNeb with resolution of the patient's dyspnea. EKG unremarkable. Labs otherwise unremarkable including WBC, troponin, d-dimer within normal limits. 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 Glucose today in the 200s. No anion gap acidosis. Bicarb 20 likely secondary to the patient's dehydration. Mildly increased AST and ALT is nonspecific and likely acute phase reactants at this time. Chest x-ray negative for pneumonia. The patient's significant improvement with treatment unlikely to have emergent process at this time. Patient is currently on Augmentin after being treated yesterday for her URI. CT of the neck did not demonstrate any evidence of neck infection. Of note, there was comment of induration in the right occipital scalp region however this is likely due to the patient's recent surgical debridement. Heart score 1, low risk, acs unlikely. D-dimer negative, PE not likely. Not positional, pericarditis not likely. No tearing pain and equal pulses, dissection not likely. No murmurs, fever, or stigmata otherwise to suggest endocarditis. Given the patient's history of MRSA as well as her smoking history we will add MRSA and atypical coverage with doxycycline. We will continue the patient's Augmentin for additional strep coverage as well as anaerobes given the patient's significantly poor dentition. Plan for PCP follow -up. The patient was counseled on smoking cessation per findings and plan for follow-up reviewed with patient. Patient agreeable and d/c'd per discharge instructions. Medication Reconcilliation Current Medication List: was personally reviewed by me Blood Pressure Screening Patient's blood pressure: Normal blood pressure Impression Primary Impression: Acute bronchitis Scribe Attestation The scribe's documentation has been prepared under my direction and personally reviewed by me in its entirety. I confirm that the note above accurately reflects all work, treatment, procedures, and medical decision making performed by me. Departure Information Dispostion Home / Self-Care Prescriptions Prednisone (Prednisone) 20 Mg Tab 3 TAB PO DAILY for 4 Days, #12 TAB FOR 4 DAYS Prov: Pelon Soliz M.D. 10/08/17 Saccharomyces Boulardii (Florastor) 250 Mg Cap 1 CAP PO BID for 10 Days, #20 CAP Prov: Pelon Soliz M.D. 10/08/17 Doxycycline Hyclate (Doxycycline Hyclate) 100 Mg Cap 1 CAP PO BID for 10 Days, #20 CAP Prov: Pelon Soliz M.D. 10/08/17 Referrals No Doctor, Assigned (PCP) Patient Instructions ED Bronchitis Asthmatic, ED Smoking Cessation, [facility] Additional Instructions Please follow up with your primary care physician in the next 1-3 days for re- evaluation. You likely have a bronchitis. Otherwise, your exam, EKG, chest xray, and lab results did not show signs of an emergent condition at this time. Acetaminophen or ibuprofen for pain and fevers as needed. Continue your Augmentin and begin Doxycycline as directed. Florastor, probiotic, to help prevent antibiotic associated diarrhea. Saline nasal spray to help thin a clear mucus as needed. Prednisone as directed. Albuterol every 4 hours for the next 48 hours and then as needed thereafter. Drink plenty of fluids to ensure hydration. Return to the emergency department for worsening symptoms as described in the accompanying instructions.
[2017-10-08] MEDS ORDERED: ALBUT/IPRATROP 3MG/0.5MG NEB 3 ML VIAL INH ONE (16:00)
--- NOTE | 2017-10-08 16:06 | DIAGNOSTIC IMAGING REPORT ---
CHEST ONE VIEW PORTABLE CLINICAL HISTORY: 32 years-old Female presenting with CHEST PAIN. TECHNIQUE: Portable upright AP view of the chest was obtained. COMPARISON: 08/25/2017. FINDINGS: Cardiomediastinal silhouette normal. No focal opacity. No large effusion or pneumothorax. Osseous structures normal. Upper abdomen normal. IMPRESSION: 1. No acute cardiopulmonary disease. Electronically signed by: Nate Gilmore M.D. 10/08/2017 4:04 PM Dictated Date/Time: 10/08/2017 4:04 PM
[2017-10-08 16:09] VITALS: PULSE 89; O2SAT 100
[2017-10-08 16:14] LABS: BASO % 0.1 %; BASO ABS # 0.01 K/uL (0-0.2); EOS % 0.8 %; EOS ABS # 0.06 K/uL (0-0.5); HEMATOCRIT 39.7 % (37-47); HEMOGLOBIN 14.4 g/dL (12.0-16.0); IG# 0.01 K/uL (0.00-0.02); LYMPH % 25.1 %; MEAN CELL VOLUME 83.1 fL (80-100); MEAN CORPUSCULAR HEMOGLOBIN 30.1 pg (25-34); MEAN CORPUSCULAR HGB CONC 36.3 g/dl (32-36); MEAN PLATELET VOLUME 10.7 fL (7.4-10.4); MONO % 5.2 %; MONO ABS # 0.39 K/uL (0.11-0.59); NEUT % 68.7 %; NEUT ABS # 5.19 K/uL (1.4-6.5); PLATELET COUNT 242 K/uL (130-400); RED CELL DISTRIBUTION WIDTH CV 12.8 % (11.5-14.5); RED CELL DISTRIBUTION WIDTH SD 38.7 fL (36.4-46.3); WHITE BLOOD COUNT 7.56 K/uL (4.8-10.8)
[2017-10-08 16:29] LABS: ALBUMIN 3.9 gm/dl (3.4-5.0); BLOOD UREA NITROGEN 10 mg/dl (7-18); CALCIUM 8.6 mg/dl (8.5-10.1); CARBON DIOXIDE 20 mmol/L (21-32); CREATININE 0.68 mg/dl (0.60-1.20); GLUCOSE 257 mg/dl (70-99); LIPASE 91 U/L (73-393); POTASSIUM 3.8 mmol/L (3.5-5.1); SODIUM 134 mmol/L (136-145)
[2017-10-08 16:34] LABS: ALKALINE PHOSPHATASE 104 U/L (45-117); ALT/SGPT 101 U/L (12-78); AST/SGOT 62 U/L (15-37); TOTAL PROTEIN 7.6 gm/dl (6.4-8.2)
[2017-10-08] MEDS ORDERED: NURSING VERBAL MED ORDER ONE (16:45)
[2017-10-08] MEDS ORDERED: ONDANSETRON INJ 2 MG/ML 2 ML VIAL ONE (16:48)
[2017-10-08] MEDS ORDERED: DOXYCYCLINE HYCLATE 100 MG CAP PO STA (17:27)
[2017-10-08] MEDS ORDERED: DXY100 PO (17:40)
[2017-10-08] MEDS ORDERED: SACC250C3 PO (17:40)
[2017-10-08] MEDS ORDERED: PRED20TA PO (17:44)
--- NOTE | 2017-10-08 17:53 | Pharmacy Progress Note ---
ED Pharmacist Progress Note Date of Service: Oct 08, 2017. Pharmacist Ron called from [facility] pharmacy, stating Doxy Hyclate is not covered by the patient's insurance however monohydrate is covered. Permission to substitute obtained from Dr Soliz.
[2017-10-08 18:05] VITALS: BP 117/68; PULSE 118; O2SAT 99
== END 2017-10-08 18:05 | disposition home or self-care (01) ==
LOC: EDBD 15:20 → C.EDC 15:21
DX: J20.9 Acute bronchitis, unspecified (principal); E86.0 Dehydration; F17.210 Nicotine dependence, cigarettes, uncomplicated; F41.9 Anxiety disorder, unspecified; F32.9 Major depressive disorder, single episode, unspecified; M41.9 Scoliosis, unspecified; I10 Essential (primary) hypertension; Q85.00 Neurofibromatosis, unspecified; K02.9 Dental caries, unspecified; E11.9 Type 2 diabetes mellitus without complications; Z79.899 Other long term (current) drug therapy; Z79.84 Long term (current) use of oral hypoglycemic drugs; Z79.4 Long term (current) use of insulin; Z83.3 Family history of diabetes mellitus; Z80.9 Family history of malignant neoplasm, unspecified

== ENCOUNTER 2017-10-09 16:09 | Emergency (ER) | payer OTHER ==
[~2017-10-09] VITALS: Ht 151.1 cm; Wt 48.7 kg
[~2017-10-09 16:09] MED LIST changes: +DXY100 PO; +PRED20TA PO; +SACC250C3 PO
[2017-10-09 16:15] VITALS: TEMP 36.6; Ht 151.1 cm; Wt 48.7 kg
[2017-10-09] MEDS ORDERED: SODIUM CHLORIDE 0.9% 1000ML 2,000 ML IV STA (16:47)
[2017-10-09] MEDS ORDERED: METOCLOPRAMIDE HCL INJ 5 MG/ML 2 ML VIAL IV STA (17:04)
[2017-10-09] MEDS ORDERED: DiphenhydrAMINE HCL 50 MG/ML VIAL IV STA (17:04)
[2017-10-09] MEDS ORDERED: LORAZEPAM 2 MG/ML 1 ML VIAL IV STA (17:04)
[2017-10-09 17:51] LABS: BASO % 0.1 %; BASO ABS # 0.01 K/uL (0-0.2); EOS % 0.1 %; EOS ABS # 0.02 K/uL (0-0.5); HEMATOCRIT 43.2 % (37-47); HEMOGLOBIN 15.2 g/dL (12.0-16.0); IG# 0.06 K/uL (0.00-0.02); LYMPH % 15.3 %; LYMPH ABS # 2.55 K/uL (1.2-3.4); MEAN CORPUSCULAR HEMOGLOBIN 29.9 pg (25-34); MEAN CORPUSCULAR HGB CONC 35.2 g/dl (32-36); MEAN PLATELET VOLUME 10.6 fL (7.4-10.4); MONO % 4.7 %; MONO ABS # 0.79 K/uL (0.11-0.59); NEUT % 79.4 %; NEUT ABS # 13.27 K/uL (1.4-6.5); PLATELET COUNT 264 K/uL (130-400); RED CELL DISTRIBUTION WIDTH CV 13.2 % (11.5-14.5); RED CELL DISTRIBUTION WIDTH SD 40.3 fL (36.4-46.3)
[2017-10-09 18:06] LABS: ALBUMIN 4.9 gm/dl (3.4-5.0); CREATININE 0.63 mg/dl (0.60-1.20); PHOSPHORUS 2.2 mg/dl (2.5-4.9); POTASSIUM 3.8 mmol/L (3.5-5.1); TOTAL PROTEIN 9.1 gm/dl (6.4-8.2)
--- NOTE | 2017-10-09 18:33 | EMERGENCY ROOM VISIT NOTE ---
History Report prepared by Manolo: Emely Obrien Under the Supervision of: Dr. Pelon Soliz M.D. First contact with patient: 16:36 Chief Complaint: NECK PAIN Stated Complaint: NECK PAIN, BACKACHE, HEADACHE History of Present Illness The patient is a 32 year old female who presents to the Emergency Room with complaints of worsening neck pain starting a week ago. The patient states that she saw her PCP today who told her to come to the ED for a lumbar puncture. She reports that her neck pain has gotten so bad that she can no longer move her neck because it is so stiff. She reports that she has tried taking Tramadol with no relief. She reports that she has never had neck pain like this before, except for when she had MRSA. She states that she was not able to sleep all night because she could not get comfortable. The patient complains of a headache and back pain. She notes that the headache and neck pain has never gone away from the surgery done in June to remove the MRSA. She notes that she has a history of migraines, but Advil takes them away. The patient denies a history of chronic back/neck pain and back surgeries. The patient notes that she did not start taking her prescribed Prednisone because she was worried about how it would affect her sugars. She states that she wanted to speak to her PCP first. The patient was seen here 2 days ago for neck pain. She had an unremarkable neck CT. She was treated fo URI with Augmentin. She came back the next day for shortness of breath. She ended up getting treated with steroids and nebulizers. She felt better and she got Doxycycline for additional coverage. She is now back because her neck is stiff and her PCP is concerned for meningitis. Currently denies changes in vision, dizziness, chest pain, shortness of breath, nausea vomiting, diarrhea, urinary symptoms. Source of History: patient Onset: a week ago Position: neck Quality: other (stiff) Timing: worsening Associated Symptoms: + headache, + back pain Review of Systems See HPI for pertinent positives and negatives. A total of ten systems were reviewed and were otherwise negative. Past Medical & Surgical Medical Problems: (1) Anxiety (2) Depression (3) Diabetes (4) Hypertension (5) Neurofibromatosis (6) Tobacco use disorder Family History FH: cancer FH: diabetes mellitus FH: heart disease FH: hypertension Social History Smoking Status: Current Every Day Smoker Alcohol Use: none Drug Use: none Marital Status: single Housing Status: lives with friends Occupation Status: unemployed Current/Historical Medications Scheduled Amoxicillin & Pot Clavulanate (Augmentin 875-125 mg), 1 TAB PO BID Buspirone Hcl (Buspar), 15 MG PO DAILY Citalopram (Citalopram Hydrobromide), 40 MG PO DAILY Doxycycline Hyclate (Doxycycline Hyclate), 1 CAP PO BID Lisinopril (Lisinopril), 2.5 MG PO DAILY Metformin Hcl (Glucophage), 1,000 MG PO BID Metoprolol Tartrate (Lopressor) (Lopressor), 12.5 MG PO BID Prednisone (Prednisone), 3 TAB PO DAILY Quetiapine Fumarate (Quetiapine Fumarate), 25 MG PO HS Saccharomyces Boulardii (Florastor), 1 CAP PO BID Sitagliptin (Januvia), 50 MG PO DAILY Scheduled PRN Tramadol (Ultram), 1-2 TAB PO Q4H PRN for Pain Miscellaneous Medications Insulin Glargine (Basaglar Kwikpen) Allergies Coded Allergies: No Known Allergies (Unverified , 10/09/17) Physical Exam Vital Signs Date Time Temp Pulse Resp B/P (MAP) Pulse Ox O2 Delivery O2 Flow Rate FiO2 10/09/17 22:49 85 18 147/103 100 Room Air 10/09/17 22:11 93 10/09/17 22:06 81 18 155/98 100 Room Air 10/09/17 20:35 84 18 133/96 99 Room Air 10/09/17 18:47 80 18 114/80 100 Room Air 10/09/17 17:59 93 10/09/17 17:40 98 20 130/92 98 Room Air 10/09/17 16:15 36.6 99 20 164/109 97 Room Air Physical Exam GENERAL: Awake, alert, fatigued appearing but in no distress HENT: Normocephalic, atraumatic. Dry mucus membranes. EYES: Normal conjunctiva. Sclera non-icteric. NECK: Rigid with limited ROM. No midline ttp or step-offs. No erythema or warmth. No JVD. Negative Kernig sign. RESPIRATORY: Clear to auscultation. CARDIAC: Regular rate, normal rhythm. Extremities warm and well perfused. Pulses equal. ABDOMEN: Soft, non-distended. No tenderness to palpation. No rebound or guarding. No masses. RECTAL: Deferred. MUSCULOSKELETAL: Chest examination reveals no tenderness. The back is symmetrical on inspection without obvious abnormality. There is no CVA tenderness to palpation. No joint edema. LOWER EXTREMITIES: Calves are equal size bilaterally and non-tender. No edema. No discoloration. NEURO: Normal sensorium. No sensory or motor deficits noted. Normal cerebellar function with [id number]. SKIN: No rash or jaundice noted. Medical Decision & Procedures ER Provider Diagnostic Interpretation: Radiology results as stated below per my review and radiologist interpretation: HEAD WITHOUT CONTRAST (CT) CT DOSE: HISTORY: Headache Headache, neck stiffness TECHNIQUE: Multiaxial CT images of the head were performed without the use of intravenous contrast. A dose lowering technique was utilized adhering to the principles of ALARA. Comparison: None. Findings: The paranasal sinuses and mastoid air cells are clear. The calvarium is intact. The right thalamus demonstrates a 4 mm focus of increased density. This potentially represents a small hemorrhagic focus versus low-density calcification. Examination brain is otherwise negative. There is no midline shift. Impression: 1. Small 4 mm focus of hemorrhage versus low-density calcium deposition right thalamus. 2. Follow-up for improved differentiation would include a repeat CT study in 12 to 24 hours.. 3. The study is otherwise negative. The above report was generated using voice recognition software. It may contain grammatical, syntax or spelling errors. Electronically signed by: Miko Lee M.D. 10/09/2017 6:41 PM Dictated Date/Time: 10/09/2017 6:38 PM SOFT TISSUE NECK WITH HISTORY: 32 years-old Female pain, neck stiffness acute posterior right-sided neck pain without reported trauma COMPARISON: CT soft tissue neck 10/05/2017 TECHNIQUE: Multiple axial CT images of the soft tissues of the neck were obtained following the intravenous administration of 98 mL Optiray 320 IV contrast. A dose lowering technique was used consistent with the principals of ALARA. FINDINGS: Mild induration of the subcutaneous fat just deep to the skin marker of the right posterior neck within the suboccipital distribution is redemonstrated on image 65 series 5 which appears unchanged. No drainable fluid collections. No pathologic adenopathy. The nasopharynx, oral pharynx and hypopharynx are patent. The lingual and palatine tonsils are within normal limits. The glottis and subglottic airway are within normal limits. Multiple secretions are seen within the vallecula and and left piriform sinus. Thyroid appears homogeneous. Parotid, submandibular and sublingual glands are within normal limits. Orbits are unremarkable. Mild paraseptal emphysematous changes of the imaged lung apices redemonstrated. The bones appear intact. Mastoid air cells and middle ear cavities are clear. Paranasal sinuses are also generally clear. There is straightening of the normal cervical lordosis. IMPRESSION: 1. Minimal subcutaneous induration within the subcutaneous tissues deep to the skin marker of the right posterior neck appears unchanged from comparison study dated 10/05/2017. This may be on a post-traumatic, infectious or inflammatory basis. Correlate with patient history and clinical exam. No drainable fluid collections identified. 2. No pathologic adenopathy. 3. Straightening of the normal cervical lordosis may be secondary to paraspinal muscle spasm or patient positioning. 4. Mild paraseptal emphysematous changes of the imaged lung apices. The above report was generated using voice recognition software. It may contain grammatical, syntax or spelling errors. Electronically signed by: Caleb Corado M.D. 10/09/2017 6:45 PM Dictated Date/Time: 10/09/2017 6:38 PM Laboratory Results 10/09/17 17:15 Red Blood Count 5.08, Mean Corpuscular Volume 85.0, Mean Corpuscular Hemoglobin 29.9, Mean Corpuscular Hemoglobin Concent 35.2, Mean Platelet Volume 10.6, Neutrophils (%) (Auto) 79.4, Lymphocytes (%) (Auto) 15.3, Monocytes (%) (Auto) 4.7, Eosinophils (%) (Auto) 0.1, Basophils (%) (Auto) 0.1, Neutrophils # (Auto) 13.27, Lymphocytes # (Auto) 2.55, Monocytes # (Auto) 0.79, Eosinophils # (Auto) 0.02, Basophils # (Auto) 0.01 10/09/17 17:15 Test 10/09/17 17:15 10/09/17 20:25 10/09/17 20:40 White Blood Count 16.70 K/uL (4.8-10.8) Red Blood Count 5.08 M/uL (4.2-5.4) Hemoglobin 15.2 g/dL (12.0-16.0) Hematocrit 43.2 % (37-47) Mean Corpuscular Volume 85.0 fL (80-100) Mean Corpuscular Hemoglobin 29.9 pg (25-34) Mean Corpuscular Hemoglobin Concent 35.2 g/dl (32-36) Platelet Count 264 K/uL (130-400) Mean Platelet Volume 10.6 fL (7.4-10.4) Neutrophils (%) (Auto) 79.4 % Lymphocytes (%) (Auto) 15.3 % Monocytes (%) (Auto) 4.7 % Eosinophils (%) (Auto) 0.1 % Basophils (%) (Auto) 0.1 % Neutrophils # (Auto) 13.27 K/uL (1.4-6.5) Lymphocytes # (Auto) 2.55 K/uL (1.2-3.4) Monocytes # (Auto) 0.79 K/uL (0.11-0.59) Eosinophils # (Auto) 0.02 K/uL (0-0.5) Basophils # (Auto) 0.01 K/uL (0-0.2) RDW Standard Deviation 40.3 fL (36.4-46.3) RDW Coefficient of Variation 13.2 % (11.5-14.5) Immature Granulocyte % (Auto) 0.4 % Immature Granulocyte # (Auto) 0.06 K/uL (0.00-0.02) Prothrombin Time 10.4 SECONDS (9.0-12.0) Prothromb Time International Ratio 1.0 (0.9-1.1) Anion Gap 6.0 mmol/L (3-11) Est Creatinine Clear Calc Drug Dose 90.5 ml/min Estimated GFR () 138.5 Estimated GFR (Non- 119.5 BUN/Creatinine Ratio 20.1 (10-20) Lactic Acid Level mmol/L (0.4-2.0) Calcium Level 10.0 mg/dl (8.5-10.1) Phosphorus Level 2.2 mg/dl (2.5-4.9) Magnesium Level 2.2 mg/dl (1.8-2.4) Total Bilirubin 0.5 mg/dl (0.2-1) Direct Bilirubin 0.1 mg/dl (0-0.2) Aspartate Amino Transf (AST/SGOT) 70 U/L (15-37) Alanine Aminotransferase (ALT/SGPT) 211 U/L (12-78) Alkaline Phosphatase 121 U/L (45-117) Total Creatine Kinase 30 U/L (26-192) Total Protein 9.1 gm/dl (6.4-8.2) Albumin 4.9 gm/dl (3.4-5.0) Lipase 65 U/L (73-393) Procalcitonin 0.13 ng/ml (0-0.5) Human Chorionic Gonadotropin, Qual NEG (NEG) Lyme Disease IgG Antibody NEG (NEG) CSF Color COLORLESS CSF Appearance CLEAR CSF WBC 2 /uL (0-5) CSF RBC 0 /uL (0) CSF Xanthrochromic NO XANTHOCHROMIA CSF Cell Count Tube # 4 CSF Chemistry Tube # 2 CSF Glucose 108 mg/dl (40-70) CSF Total Protein 35.9 mg/dl (15.0-45.0) Urine Color DK YELLOW Urine Appearance CLEAR (CLEAR) Urine pH 5.5 (4.5-7.5) Urine Specific [place] > 1.045 (1.000-1.030) Urine Protein NEG (NEG) Urine Glucose (UA) NEG (NEG) Urine Ketones NEG (NEG) Urine Occult Blood NEG (NEG) Urine Nitrite NEG (NEG) Urine Bilirubin NEG (NEG) Urine Urobilinogen NEG (NEG) Urine Leukocyte Esterase NEG (NEG) Laboratory results reviewed by me Medications Administered Medications (Trade) Dose Ordered Sig/Song Route Start Time Stop Time Status Last Admin Dose Admin Sodium Chloride 2,000 ml @ 999 mls/hr Q2H1M STAT IV 10/09/17 16:47 10/09/17 18:47 DC 10/09/17 17:35 999 MLS/HR Metoclopramide HCl (Reglan Inj) 10 mg NOW STAT IV 10/09/17 17:04 10/09/17 17:07 DC 10/09/17 17:35 10 MG Diphenhydramine HCl (Benadryl Inj) 25 mg NOW STAT IV 10/09/17 17:04 10/09/17 17:07 DC 10/09/17 17:35 25 MG Lorazepam (Ativan Inj) 1 mg NOW STAT IV 10/09/17 17:04 10/09/17 17:07 DC 10/09/17 17:35 1 MG Dexamethasone Sodium Phosphate (Dexamethasone Inj Pf) 10 mg NOW ONCE IV 10/09/17 22:30 10/09/17 22:31 DC 10/09/17 22:50 10 MG Prochlorperazine Edisylate (Compazine Inj) 10 mg NOW STAT IV 10/09/17 22:23 10/09/17 22:30 DC 10/09/17 22:50 10 MG Amoxicillin/ Clavulanate Potassium (Augmentin Tab) 875 mg ONE STAT PO 10/09/17 22:49 10/09/17 22:51 DC 10/09/17 22:54 875 MG Doxycycline Hyclate (Vibramycin Cap) 100 mg ONE STAT PO 10/09/17 22:49 10/09/17 22:51 DC 10/09/17 22:54 100 MG Procedure Lumbar Puncture Indication: Headache and neck stiffness. Verbal consent was obtained after the risks and benefits were explained, including but not limited to headache, bleeding/clotting, scarring, infection, pain, and bone/joint/nerve damage. At this time, the risks of the procedure are less than the risks of NOT performing the procedure. A time out was taken and the correct patient and site identified. The patient was placed in the right lateral decubitus position and the back was prepped with betadine and draped in the standard fashion. The L3 intervertebral space was identified, anesthetized locally with 1% lidocaine without epinephrine, and the spinal needle was inserted through the skin with the bevel parallel to the dural fibers. The needle was carefully advanced into the lumbar cistern and 4 tubes of clear CSF was obtained. The stylet was replaced and the needle was removed. A bandaid was placed and the patient was placed in the supine position. The patient tolerated the procedure well and there were no complications. ED Course 1651: The patient was evaluated in room B12B. A complete history and physical exam was performed. I discussed the risks and benefits of a lumbar puncture with the patient. She agrees to have it done. 1904: I reevaluated the patient and she was sleeping. She now has full ROM in her neck without difficulties. Medical Decision I reviewed the patient's past medical history, medications, and the nursing notes as described above. Differential diagnosis: Etiologies such as migraine headache, meningitis, sinusitis, CO exposure, ICH, SAH, infection, tumor, headache, sinus thrombosis, arterial dissection, as well as others were entertained. 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 Of note, the patient was initially seen in the emergency department in August for upper respiratory infection/bronchitis, subsequently the patient was seen in the ED on 10/07 for neck pain which she has had since her surgery and had negative soft tissue CT scan. Subsequently discharged on Augmentin for URI. She was seen in the ED yesterday for 30 for shortness of breath and chest pain and had negative chest x-ray and d-dimer within normal limits and was ultimately diagnosed with bronchitis and again treated with steroids, nebs, hydration and felt improvement. Patient was seen by her PCP today and complained that she could not move her neck and arrived to the ED with a rigid neck but otherwise no exquisite CTL-spine tenderness. Additionally , the patient had a negative Kernig sign. Labs today demonstrate a leukocytosis to 16 which is increased from 7 yesterday however in the setting of being given Solu-Medrol. Chemistry today shows slight interval increase in her LFTs with AST 62-->70 and ALT 101->211. Otherwise no evidence of gap acidosis or acidosis otherwise. Patient was given IV fluids, Reglan, Benadryl, Ativan with good effect. On reevaluation the patient was found to be sleeping with her head turned and resting against her right shoulder. Patient awoke and looked around the room with full range of motion in her neck without any difficulty. While she reported improvement she did still report some neck soreness. She also reported improvement in her migraine to [address] soft tissue neck was repeated given the patient's history of MRSA infection and shows no interval change from [address] head demonstrates a 4 mm focus in the right thalamus that could be consistent with calcification versus hemorrhage. Lumbar puncture was performed and had a normal opening pressure of 10 mmHg. CSF otherwise is clear. Thus, my suspicion for meningitis is low given the patient is afebrile and has had ongoing neck pain and headache symptoms since June. However, given the patient's equivocal CT findings in the setting of the patient's complicated recent medical history it is reasonable to admit the patient for neuro monitoring and repeat CT scan, particularly given that the patient has returned to the emergency department 3 days in a row, which included a PCP follow-up but subsequent referral to the ED. Blood cultures sent and pending. Patient currently is on Augmentin and doxycycline. Pro-calcitonin ordered to help inform need for broadening of coverage given not clear signs of worsening infection at this time. Pro-alexandrea wnl. Thus, worsening infection unlikely. Will continue home oral Augmentin and Doxycycline for now. I discussed the case with Dr. Iraheta [facility] hospitalist who does not accept the admission given the question of IPH on CT and recommends transfer to tertiary care center where neurosurgery is available. [facility] contact. I discussed the case with Dr. Perez, [facility] neurosurgery and we agree that there is no role for neurosurgery involvement/intervention at this time. However, given that we are unable to admit the patient here or board the patient overnight for observation and repeat imaging the patient will still require transfer. Case was additionally discussed with Dr. Rao, [facility] hospitalist, who accepts the patient for transfer. In the interim, the patient is reporting a return of her headache and otherwise neurologically unchanged. Thus, will treat the patient with dexamethasone and Compazine given her migraine history. Patient transferred to [facility] via ALS. Medication Reconcilliation Current Medication List: was personally reviewed by me Consults Time Called: 21:06 Consulting Physician: Dr. Burdick [facility] hospitalist Returned Call: 21:45 Given question of IPH, does not accept admission and recommends transfer to tertiary care center where Neurosurgery is available. Additional Consults: Time Called: 21:50 Consulted Physician: [facility]: KAREN Maldonado [facility] Returned Call: 21:55 Additional Comments: MARLYGY, no need for NSGY involvement/intervention at this time. Hospitalist accepts transfer for observation. Impression Primary Impression: Headache Additional Impression: Torticollis, acute Scribe Attestation The scribe's documentation has been prepared under my direction and personally reviewed by me in its entirety. I confirm that the note above accurately reflects all work, treatment, procedures, and medical decision making performed by me. Departure Information Referrals No Doctor, Assigned (PCP) Patient Instructions My [facility] Problem Qualifiers
--- NOTE | 2017-10-09 18:43 | DIAGNOSTIC IMAGING REPORT ---
HEAD WITHOUT CONTRAST (CT) CT DOSE: HISTORY: Headache Headache, neck stiffness TECHNIQUE: Multiaxial CT images of the head were performed without the use of intravenous contrast. A dose lowering technique was utilized adhering to the principles of ALARA. Comparison: None. Findings: The paranasal sinuses and mastoid air cells are clear. The calvarium is intact. The right thalamus demonstrates a 4 mm focus of increased density. This potentially represents a small hemorrhagic focus versus low-density calcification. Examination brain is otherwise negative. There is no midline shift. Impression: 1. Small 4 mm focus of hemorrhage versus low-density calcium deposition right thalamus. 2. Follow-up for improved differentiation would include a repeat CT study in 12 to 24 hours.. 3. The study is otherwise negative. The above report was generated using voice recognition software. It may contain grammatical, syntax or spelling errors. Electronically signed by: Miko Lee M.D. 10/09/2017 6:41 PM Dictated Date/Time: 10/09/2017 6:38 PM
[2017-10-09] MEDS ORDERED: OPTIRAY 320 IV PRN (18:45)
--- NOTE | 2017-10-09 18:47 | DIAGNOSTIC IMAGING REPORT ---
SOFT TISSUE NECK WITH HISTORY: 32 years-old Female pain, neck stiffness acute posterior right-sided neck pain without reported trauma COMPARISON: CT soft tissue neck 10/05/2017 TECHNIQUE: Multiple axial CT images of the soft tissues of the neck were obtained following the intravenous administration of 98 mL Optiray 320 IV contrast. A dose lowering technique was used consistent with the principals of JOSE CARLOS. FINDINGS: Mild induration of the subcutaneous fat just deep to the skin marker of the right posterior neck within the suboccipital distribution is redemonstrated on image 65 series 5 which appears unchanged. No drainable fluid collections. No pathologic adenopathy. The nasopharynx, oral pharynx and hypopharynx are patent. The lingual and palatine tonsils are within normal limits. The glottis and subglottic airway are within normal limits. Multiple secretions are seen within the vallecula and and left piriform sinus. Thyroid appears homogeneous. Parotid, submandibular and sublingual glands are within normal limits. Orbits are unremarkable. Mild paraseptal emphysematous changes of the imaged lung apices redemonstrated. The bones appear intact. Mastoid air cells and middle ear cavities are clear. Paranasal sinuses are also generally clear. There is straightening of the normal cervical lordosis. IMPRESSION: 1. Minimal subcutaneous induration within the subcutaneous tissues deep to the skin marker of the right posterior neck appears unchanged from comparison study dated 10/05/2017. This may be on a post-traumatic, infectious or inflammatory basis. Correlate with patient history and clinical exam. No drainable fluid collections identified. 2. No pathologic adenopathy. 3. Straightening of the normal cervical lordosis may be secondary to paraspinal muscle spasm or patient positioning. 4. Mild paraseptal emphysematous changes of the imaged lung apices. The above report was generated using voice recognition software. It may contain grammatical, syntax or spelling errors. Electronically signed by: Caleb Corado M.D. 10/09/2017 6:45 PM Dictated Date/Time: 10/09/2017 6:38 PM
[2017-10-09] MEDS ORDERED: LIDOCAINE 1% BUFFERED INJ 5 ML VIAL INFIL ONE (19:15)
[2017-10-09 21:08] LABS: CSF GLUCOSE 108 mg/dl (40-70); CSF TOTAL PROTEIN 35.9 mg/dl (15.0-45.0)
[2017-10-09] MEDS ORDERED: PROCHLORPERAZINE 5 MG/ML 2 ML VIAL IV STA (22:23)
[2017-10-09] MEDS ORDERED: DEXAMETHASONE **PF** INJ 10 MG/ML VIAL IV ONE (22:30)
[2017-10-09 22:49] VITALS: BP 147/103; PULSE 85; O2SAT 100
[2017-10-09] MEDS ORDERED: DOXYCYCLINE HYCLATE 100 MG CAP PO STA (22:49)
[2017-10-09] MEDS ORDERED: AMOXICILLIN/CLAVULANATE TAB 875 MG TAB PO STA (22:49)
[2017-10-09] MEDS ORDERED: SODIUM CHLORIDE 0.9% 1000ML 1,000 ML IV STA (22:50)
== END 2017-10-09 22:59 | disposition short-term general hospital (02) ==
LOC: C.EDB 16:11
DX: R51 Headache (principal); M43.6 Torticollis; Z86.14 Personal history of Methicillin resistant Staphylococcus aureus infection; F41.9 Anxiety disorder, unspecified; F32.9 Major depressive disorder, single episode, unspecified; E11.9 Type 2 diabetes mellitus without complications; I10 Essential (primary) hypertension; F17.210 Nicotine dependence, cigarettes, uncomplicated; Q85.00 Neurofibromatosis, unspecified; Z79.84 Long term (current) use of oral hypoglycemic drugs; Z79.899 Other long term (current) drug therapy; Z79.4 Long term (current) use of insulin

== ENCOUNTER 2017-10-13 18:10 | Emergency (ER) | payer OTHER ==
[~2017-10-13] VITALS: Ht 149.9 cm; Wt 48.0 kg
[2017-10-13 18:22] VITALS: Ht 149.9 cm; Wt 48.0 kg
[2017-10-13 18:24] VITALS: O2SAT 99
--- NOTE | 2017-10-13 18:56 | EMERGENCY ROOM VISIT NOTE ---
History Report prepared by Manolo: Florina Martin Under the Supervision of: Dr. Magi Grossman D.O. First contact with patient: 18:32 Chief Complaint: NECK PAIN Stated Complaint: NECK & BACK PAIN/NAUSEA History of Present Illness The patient is a 32 year old female who presents to the Emergency Room with complaints of persistent neck pain that started a week and a half ago. The patient rates her pain a 10/10 in severity. The patient reports the pain starts in her neck and works through her head and down to her lower back. She states the pain is so bad it is difficult for her to breathe. The patient was seen in the ED last week and she was sent to [facility]. States she is continued to have the same pain throughout her evaluations and including her transferred to [facility]. She reports they found calcification in her brain and that her vessels in brain are very thin which increases her risk of a stroke. She states she was prescribed a nerve eric a couple of days ago. The patient reports she is having trouble focusing. She notes she tried Tylenol, Aspirin, and a heating pad today but they did not help her pain. She states she was also given Ultram which did not help either. She was discharged on Flexeril and Fioricet. She reports she also has pain in her left shoulder. She states it is a tingling feeling. She denies having this pain before or a recent fall or injury to her shoulder. She reports she had migraines as a child but has not had them in a long time. The patient states she gets blurry vision and is sometimes sensitive to light. She reports she had MRSA in the back of her neck. Pt denies fevers, chest pain, nausea, vomiting, diarrhea, pain with urination, and melena. Source of History: patient Onset: week and a half ago Position: neck Symptom Intensity: 10/10 Timing: other (persistent) Associated Symptoms: + headache, + back pain, No fevers, No chest pain, No nausea, No vomiting, No melena, No diarrhea, No urinary symptoms Note: additional symptoms: left shoulder pain, blurry vision, sensitivity to light. Review of Systems See HPI for pertinent positives & negatives. A total of 10 systems reviewed and were otherwise negative. Past Medical & Surgical Medical Problems: (1) Anxiety (2) Depression (3) Diabetes (4) Hypertension (5) Neurofibromatosis (6) Tobacco use disorder Family History FH: cancer FH: diabetes mellitus FH: heart disease FH: hypertension Social History Smoking Status: Current Every Day Smoker Alcohol Use: none Drug Use: none Marital Status: single Housing Status: lives with friends Occupation Status: unemployed Current/Historical Medications Scheduled Buspirone Hcl (Buspar), 15 MG PO DAILY Citalopram (Citalopram Hydrobromide), 40 MG PO DAILY Cyclobenzaprine Hcl (Flexeril), 5 MG PO HS Insulin Aspart (Novolog Flexpen), SQ AC Insulin Glargine (Lantus Solostar), 10 UNITS SQ QPM Lidocaine (Aspercreme Lidocaine Patc), 1 PATCH TD DAILY Lisinopril (Lisinopril), 2.5 MG PO DAILY Medroxyprogesterone Acetate (C (Depo-Provera Contraceptiv), 150 MG INJ Q90 DAYS Metoprolol Tartrate (Lopressor) (Lopressor), 12.5 MG PO BID Nicotine (Nicotine), 1 PATCH TOP DAILY Prednisone (Prednisone), 20 MG PO TID Quetiapine Fumarate (Quetiapine Fumarate), 25 MG PO HS Saccharomyces Boulardii (Florastor), 250 MG PO BID Sitagliptin (Januvia), 50 MG PO DAILY Scheduled PRN Acetamin/Butalbital/Caffeine (Fioricet), 1 TAB PO Q6H PRN for HEADACHE Tramadol (Ultram), 50 MG PO Q8H PRN for Pain [Ventolin Hfa 108], 2 PUFFS INH QID PRN for SOB/Wheezing Allergies Coded Allergies: No Known Allergies (Unverified , 10/09/17) Physical Exam Vital Signs Date Time Temp Pulse Resp B/P (MAP) Pulse Ox O2 Delivery O2 Flow Rate FiO2 10/13/17 22:28 36.7 94 20 115/85 100 10/13/17 21:34 94 115/85 100 Room Air 10/13/17 19:27 116 115/85 97 Room Air 10/13/17 18:37 112 10/13/17 18:24 99 Room Air 10/13/17 18:22 36.7 111 20 115/85 99 Room Air Physical Exam GENERAL: alert, well appearing, well nourished, no distress, non-toxic, odd affect, cachectic. EYE EXAM: normal conjunctiva, PERRL and EOM's grossly intact OROPHARYNX: no exudate, no erythema, lips, buccal mucosa, and tongue normal and mucous membranes are moist NECK: Hypersensitivity noted to bilateral perispinal neck muscle and bilateral trapezius pain with palpation. Neck and shoulder sensation intact. LUNGS: Clear to auscultation. Normal chest wall mechanics HEART: no murmurs, S1 normal and S2 normal ABDOMEN: abdomen soft, non-tender, normo-active bowel sounds, no masses, no rebound or guarding. BACK: Back is symmetrical on inspection and there is no deformity, no midline tenderness, no CVA tenderness. SKIN: no rashes and no bruising UPPER EXTREMITIES: Decreased range of motion in left upper extremity secondary to pain. LOWER EXTREMITIES: No pitting edema. Chronic atrophy and deformity noted in left lower extremity. NEURO EXAM: Normal sensorium, normal speech, no [gross] weakness of arms, no [ gross] weakness of legs. Medical Decision & Procedures ER Provider Diagnostic Interpretation: Radiology results have been interpreted by the radiologist and reviewed by me. CERVICAL SPINE COMBO CLINICAL HISTORY: 32 years-old Female presenting with neck pain into LUE, hx NF1. TECHNIQUE: Multisequence, multiplanar MR imaging of the cervical spine was performed before and after the administration of intravenous contrast. IV contrast: 4.5 mL of Gadavist. COMPARISON: CTA neck from 10/09/2017. FINDINGS: Localizer images: Focal nonocclusive vague lesion in the right humeral head. Slight straightening of normal cervical lordosis likely positional. Vertebral bodies maintain normal height, alignment, and bone marrow signal intensity. Intervertebral discs are preserved. No significant degenerative change. No neural foraminal or spinal canal narrowing. No epidural collection. Cervical spinal cord maintains normal morphology and signal intensity. Craniocervical junction normal. No evidence of a syrinx. Postcontrast imaging is normal without evidence of a focal lesion within the spinal cord. Paraspinal musculature normal. No widening of the neural foramina. No mass lesions. IMPRESSION: 1. No mass lesion. 2. Normal contrast-enhanced MR of the cervical spine. Electronically signed by: Nate Gilmore M.D. 10/13/2017 8:28 PM Dictated Date/Time: 10/13/2017 8:24 PM Medications Administered Medications (Trade) Dose Ordered Sig/Song Route Start Time Stop Time Status Last Admin Dose Admin Ketorolac Tromethamine (Toradol Inj) 15 mg NOW STAT IV 10/13/17 18:58 10/13/17 19:11 DC 10/13/17 19:20 15 MG Prochlorperazine Edisylate (Compazine Inj) 5 mg NOW STAT IV 10/13/17 18:58 10/13/17 19:11 DC 10/13/17 19:20 5 MG Diphenhydramine HCl (Benadryl Inj) 12.5 mg NOW STAT IV 10/13/17 18:58 10/13/17 19:11 DC 10/13/17 19:19 12.5 MG Dexamethasone Sodium Phosphate (Decadron Inj) 8 mg NOW STAT IV 10/13/17 20:54 10/13/17 20:56 DC 10/13/17 21:33 8 MG Magnesium Sulfate 100 ml @ 100 mls/hr NOW STAT IV 10/13/17 20:54 10/13/17 21:53 DC 10/13/17 21:32 100 MLS/HR Sodium Chloride 500 ml @ 999 mls/hr Q31M STAT IV 10/13/17 20:54 10/13/17 21:24 DC 10/13/17 21:33 999 MLS/HR ED Course 183: The patient was evaluated in room C8. A complete history and physical exam was performed. 185: Benadryl Inj 12.5 mg IV, Compazine Inj 5 mg IV, Toradol Inj 15 mg IV. 1999: Gadavist 4.5 mmol IV. 2049: I rechecked the patient and she states she feels minimally better. She is able to turn her head. I also updated her on her MRI results. 2053: Sodium Chloride 500 ml @ 999 mls/hr IV, Magnesium Sulfate 100 ml @ 100 mls /hr, Decadron Inj 8 mg IV. 2219: Upon reevaluation, the patient is feeling better. I discussed the findings and the treatment plan with the patient. She verbalizes agreement and understanding. She was discharged home. Medical Decision Differential diagnosis: Etiologies such as migraine headache, meningitis, sinusitis, CO exposure, ICH, SAH, infection, tumor, headache, sinus thrombosis, arterial dissection, as well as others were entertained. Records obtained from recent evaluation at [facility]. Significant time spent reviewing prior evaluations here, imaging, as well as transfer notes and imaging from [facility]. Patient discharged discharge within the last 48 hours. Given the patient's symptoms have not changed over the course of the last 10 days, patient is not having any new neurologic findings, I do not feel patient needed repeat imaging of her brain or vasculature. It seems that the only other imaging that did not been performed was an MRI of her C-spine which she had and was read as normal. Patient improved following medication here. Discussed with her this could be an atypical presentation of a migraine. Patient does have a follow-up appointment scheduled with neurology already. Discussed with her continued use of her medications as prescribed, avoidance of things that could worsen her headaches such as dehydration and sleep deprivation. Discussed close monitoring of her diet. Discussed symptoms to watch and return for, she verbalized understanding was agreeable with plan. I do not suspect CVA, ICH, venous sinus thrombus, occult intracranial infection, vertebral artery dissection, no evidence of cervical radiculopathy, doubt occipital neuralgia. Medication Reconcilliation Current Medication List: was personally reviewed by me Blood Pressure Screening Patient's blood pressure: Normal blood pressure Impression Primary Impression: Headache Additional Impression: Neck pain Scribe Attestation The scribe's documentation has been prepared under my direction and personally reviewed by me in its entirety. I confirm that the note above accurately reflects all work, treatment, procedures, and medical decision making performed by me. Departure Information Dispostion Home / Self-Care Referrals Ida Garcia DO (PCP) Patient Instructions My [facility] Additional Instructions Please keep your appointment with neurology. Please continue your regular medications as prescribed. Please make sure you are drinking plenty of fluids to stay well-hydrated as this can contribute to worsening headache and muscle spasm. If you develop worsening pain, increased weakness or tingling, vomiting , fevers, you have any other new concerns, please return the emergency room. Problem Qualifiers Primary Impression: Headache Headache type: unspecified Headache chronicity pattern: unspecified pattern Intractability: not intractable Qualified Codes: R51 - Headache
[2017-10-13] MEDS ORDERED: PROCHLORPERAZINE 5 MG/ML 2 ML VIAL IV STA (18:58)
[2017-10-13] MEDS ORDERED: DiphenhydrAMINE HCL 50 MG/ML VIAL IV STA (18:58)
[2017-10-13] MEDS ORDERED: KETOROLAC TROMETHAMINE 30 MG/ML VIAL IV STA (18:58)
[2017-10-13] MEDS ORDERED: GADAVIST IV PRN (20:00)
[2017-10-13] MEDS ORDERED: FRCT/ PO (20:24)
[2017-10-13] MEDS ORDERED: CYCL10TA6 PO (20:27)
[2017-10-13] MEDS ORDERED: SACC250C PO (20:29)
--- NOTE | 2017-10-13 20:29 | DIAGNOSTIC IMAGING REPORT ---
CERVICAL SPINE COMBO CLINICAL HISTORY: 32 years-old Female presenting with neck pain into LUE, hx NF1. TECHNIQUE: Multisequence, multiplanar MR imaging of the cervical spine was performed before and after the administration of intravenous contrast. IV contrast: 4.5 mL of Gadavist. COMPARISON: CTA neck from 10/09/2017. FINDINGS: Localizer images: Focal nonocclusive vague lesion in the right humeral head. Slight straightening of normal cervical lordosis likely positional. Vertebral bodies maintain normal height, alignment, and bone marrow signal intensity. Intervertebral discs are preserved. No significant degenerative change. No neural foraminal or spinal canal narrowing. No epidural collection. Cervical spinal cord maintains normal morphology and signal intensity. Craniocervical junction normal. No evidence of a syrinx. Postcontrast imaging is normal without evidence of a focal lesion within the spinal cord. Paraspinal musculature normal. No widening of the neural foramina. No mass lesions. IMPRESSION: 1. No mass lesion. 2. Normal contrast-enhanced MR of the cervical spine. Electronically signed by: Nate Gilmore M.D. 10/13/2017 8:28 PM Dictated Date/Time: 10/13/2017 8:24 PM
[2017-10-13] MEDS ORDERED: INSDGIPEN SQ (20:31)
[2017-10-13] MEDS ORDERED: LIDO4PAD TD (20:34)
[2017-10-13] MEDS ORDERED: NICO14DI9 TOP (20:37)
[2017-10-13] MEDS ORDERED: TRAM-10 PO (20:39)
[2017-10-13] MEDS ORDERED: PRED20TA PO (20:41)
[2017-10-13] MEDS ORDERED: VENTOLIN HFA 108 INH (20:43)
[2017-10-13] MEDS ORDERED: MEDR1INJ3 INJ (20:47)
[2017-10-13] MEDS ORDERED: NVLGI/PEN SQ (20:50)
[2017-10-13] MEDS ORDERED: MAGNESIUM SULFATE 1GM / D5W 100 ML IV STA (20:54)
[2017-10-13] MEDS ORDERED: SODIUM CHLORIDE 0.9% 500ML 500 ML IV STA (20:54)
[2017-10-13] MEDS ORDERED: DEXAMETHASONE SOD INJ 4 MG/ML VIAL IV STA (20:54)
[2017-10-13 22:28] VITALS: BP 115/85; PULSE 94; TEMP 36.7; O2SAT 100
== END 2017-10-13 22:29 | disposition home or self-care (01) ==
LOC: EDBD 18:10 → C.ED 18:11 → C.EDC 22:29
DX: R51 Headache (principal); M54.2 Cervicalgia; I10 Essential (primary) hypertension; E11.9 Type 2 diabetes mellitus without complications; Q85.00 Neurofibromatosis, unspecified; Z79.4 Long term (current) use of insulin; Z79.899 Other long term (current) drug therapy; F17.200 Nicotine dependence, unspecified, uncomplicated

== ENCOUNTER 2017-10-16 14:38 | Emergency (ER) | payer OTHER ==
[~2017-10-16] VITALS: Ht 151.1 cm; Wt 49.9 kg
[~2017-10-16 14:38] MED LIST changes: -AMOX875T PO; +CYCL10TA6 PO; -DXY100 PO; +FRCT/ PO; +INSDGIPEN SQ; -INSU100I23; +LIDO4PAD TD; +MEDR1INJ3 INJ; -METF-384 PO; +NICO14DI9 TOP; +NVLGI/PEN SQ; +SACC250C PO; -SACC250C3 PO; +VENTOLIN HFA 108 INH
[2017-10-16 14:49] VITALS: TEMP 36.6
--- NOTE | 2017-10-16 15:03 | EMERGENCY ROOM VISIT NOTE ---
History Report prepared by Manolo: Buddy Krishnamurthy Under the Supervision of: Dr. Glen Cochran D.O. First contact with patient: 14:53 Chief Complaint: NEURO SYMPTOMS Stated Complaint: HAND CRAMP History of Present Illness The patient is a 32 year old female with a history of anxiety, neurofibromatosis , diabetes who presents to the Emergency Room via EMS from her primary care physician's office with complaints of worsening left forearm complaints that started earlier today. She states that her head has been foggy today, and she has head pain currently. The patient notes that earlier this morning, her fingers on her left hand would feel like they "are touching an ice cube". She states that she was getting a tingling and numbness down her left arm. She says that she called her primary care physician, and scheduled an appointment. On the way to the appointment, she noticed that her left hand locked, and she has not been able to move her left forearm and hand ever since then. She notes that she then got sick with episodes of vomiting, and then got sick again on the way here. The patient says that she took an ambulance from her primary care physician's office, but did not actually see her doctor today. She adds that she has neck pain, back pain, and leg weakness, but these are not new today. The patient says that she was recently diagnosed with calcification. She says that she has an appointment with a neurologist later this month. Her last period was the end of last month. Source of History: patient Onset: Earlier today Position: arm (left) Symptom Intensity: cannot move left forearm or hand Quality: other (complaints) Timing: worsening Associated Symptoms: + headache, + neck pain, + vomiting, + back pain, + weakness (leg), + numbness (left arm) Note: No other associated symptoms noted. Review of Systems See HPI for pertinent positives & negatives. A total of 10 systems reviewed and were otherwise negative. Past Medical & Surgical Medical Problems: (1) Anxiety (2) Depression (3) Diabetes (4) Hypertension (5) Neurofibromatosis (6) Tobacco use disorder Family History FH: cancer FH: diabetes mellitus FH: heart disease FH: hypertension Social History Smoking Status: Current Every Day Smoker Alcohol Use: none Drug Use: none Marital Status: single Housing Status: lives with friends Occupation Status: unemployed Current/Historical Medications Scheduled Buspirone Hcl (Buspar), 15 MG PO DAILY Citalopram (Citalopram Hydrobromide), 40 MG PO DAILY Cyclobenzaprine Hcl (Flexeril), 5 MG PO HS Insulin Aspart (Novolog Flexpen), SQ AC Insulin Glargine (Lantus Solostar), 10 UNITS SQ QPM Lidocaine (Aspercreme Lidocaine Patc), 1 PATCH TD DAILY Lisinopril (Lisinopril), 2.5 MG PO DAILY Medroxyprogesterone Acetate (C (Depo-Provera Contraceptiv), 150 MG INJ Q90 DAYS Metoprolol Tartrate (Lopressor) (Lopressor), 12.5 MG PO BID Nicotine (Nicotine), 1 PATCH TOP DAILY Quetiapine Fumarate (Quetiapine Fumarate), 25 MG PO HS Saccharomyces Boulardii (Florastor), 250 MG PO BID Sitagliptin (Januvia), 50 MG PO DAILY Scheduled PRN Acetamin/Butalbital/Caffeine (Fioricet), 1 TAB PO Q6H PRN for HEADACHE Tramadol (Ultram), 50 MG PO Q8H PRN for Pain [Ventolin Hfa 108], 2 PUFFS INH QID PRN for SOB/Wheezing Allergies Coded Allergies: No Known Allergies (Unverified , 10/16/17) Physical Exam Vital Signs Date Time Temp Pulse Resp B/P (MAP) Pulse Ox O2 Delivery O2 Flow Rate FiO2 10/16/17 18:00 112 16 130/93 99 10/16/17 16:25 120 15 137/91 100 Room Air 10/16/17 15:40 100 Room Air 10/16/17 15:40 100 Room Air 10/16/17 15:39 108 10/16/17 15:37 118 24 122/99 100 Room Air 10/16/17 14:49 36.6 73 18 121/84 98 Room Air Physical Exam GENERAL: Patient is awake, alert, and in no acute distress. Patient is resting comfortably and showing no signs of anxiety EYES: The conjunctivae are clear. The pupils are round and reactive. EARS, NOSE, MOUTH AND THROAT: The nose is without any evidence of any deformity. Mucous membranes are moist tongue is midline NECK: The neck is nontender and supple. RESPIRATORY: Normal respiratory effort is noted there is no evidence of wheezing rhonchi or rales CARDIOVASCULAR: Regular rate and rhythm noted there no murmurs rubs or gallops normal S1 normal S2 GASTROINTESTINAL: The abdomen is soft. Bowel sounds are present in all quadrants. Abdomen is nontender MUSCULOSKELETAL/EXTREMITIES: There is no evidence of gross deformity full range of motion is noted in the hips and shoulders SKIN: There is no obvious evidence of any rash. There are no petechiae, pallor or cyanosis noted. NEUROLOGIC: Patient is awake alert and oriented x3 strength is symmetric patellar reflexes are 2+ bilaterally. Patient was holding left upper extremity with hand clenched and wrist flexion, but I was able to passively extend the wrist and extend the fingers. Medical Decision & Procedures ER Provider Diagnostic Interpretation: Radiology results as stated below per my review and radiologist interpretation: CT HEAD WITHOUT CONTRAST (CT) CLINICAL HISTORY: Altered mental status. Weakness. COMPARISON STUDY: 10/09/2017 TECHNIQUE: Axial CT of the brain is performed from the vertex to the skull base. IV contrast was not administered for this examination. A dose lowering technique was utilized adhering to the principles of ALARA. CT DOSE: 537.48 mGy.cm FINDINGS: No intra or extra-axial mass lesions are visualized. There is no CT evidence of acute cortical infarction. There is no evidence of midline shift. There is no acute hemorrhage. No calvarial fractures are visualized. There is a stable 7 mm right thalamic hyperdense focus, likely calcified. There is no evidence of pathologic ventricular dilatation. There is no evidence of acute sinusitis IMPRESSION: 1. Stable 7 mm hyperdense right thalamic focus, likely calcified 2. No additional findings of significance. Electronically signed by: Migel Martell M.D 10/16/2017 4:09 PM Dictated Date/Time: 10/16/2017 4:06 PM CHEST ONE VIEW PORTABLE CLINICAL HISTORY: EVALUATE ALTERED MENTAL STATUS/WEAKNESS dyspnea COMPARISON STUDY: 10/08/2017 FINDINGS: The bones soft tissues and hemidiaphragms are normal. The cardiomediastinal silhouette is normal. The lungs are clear. The pulmonary vasculature is normal. IMPRESSION: Negative chest. The above report was generated using voice recognition software. It may contain grammatical, syntax or spelling errors. Electronically signed by: Miko Lee M.D. 10/16/2017 3:13 PM Dictated Date/Time: 10/16/2017 3:12 PM Laboratory Results 10/16/17 15:18 Red Blood Count 4.95, Mean Corpuscular Volume 84.0, Mean Corpuscular Hemoglobin 29.5, Mean Corpuscular Hemoglobin Concent 35.1, Mean Platelet Volume 10.5, Neutrophils (%) (Auto) 78.3, Lymphocytes (%) (Auto) 15.4, Monocytes (%) (Auto) 5.2, Eosinophils (%) (Auto) 0.2, Basophils (%) (Auto) 0.1, Neutrophils # (Auto) 13.15, Lymphocytes # (Auto) 2.58, Monocytes # (Auto) 0.88, Eosinophils # (Auto) 0.03, Basophils # (Auto) 0.01 10/16/17 15:18 Test 10/16/17 15:06 10/16/17 15:18 10/16/17 16:50 Bedside Glucose 190 mg/dl (70-90) White Blood Count 16.78 K/uL (4.8-10.8) Red Blood Count 4.95 M/uL (4.2-5.4) Hemoglobin 14.6 g/dL (12.0-16.0) Hematocrit 41.6 % (37-47) Mean Corpuscular Volume 84.0 fL (80-100) Mean Corpuscular Hemoglobin 29.5 pg (25-34) Mean Corpuscular Hemoglobin Concent 35.1 g/dl (32-36) Platelet Count 302 K/uL (130-400) Mean Platelet Volume 10.5 fL (7.4-10.4) Neutrophils (%) (Auto) 78.3 % Lymphocytes (%) (Auto) 15.4 % Monocytes (%) (Auto) 5.2 % Eosinophils (%) (Auto) 0.2 % Basophils (%) (Auto) 0.1 % Neutrophils # (Auto) 13.15 K/uL (1.4-6.5) Lymphocytes # (Auto) 2.58 K/uL (1.2-3.4) Monocytes # (Auto) 0.88 K/uL (0.11-0.59) Eosinophils # (Auto) 0.03 K/uL (0-0.5) Basophils # (Auto) 0.01 K/uL (0-0.2) RDW Standard Deviation 40.4 fL (36.4-46.3) RDW Coefficient of Variation 13.4 % (11.5-14.5) Immature Granulocyte % (Auto) 0.8 % Immature Granulocyte # (Auto) 0.13 K/uL (0.00-0.02) Prothrombin Time 10.0 SECONDS (9.0-12.0) Prothromb Time International Ratio 1.0 (0.9-1.1) Activated Partial Thromboplast Time 24.2 SECONDS (21.0-31.0) Partial Thromboplastin Ratio 0.9 Anion Gap 11.0 mmol/L (3-11) Est Creatinine Clear Calc Drug Dose 111.8 ml/min Estimated GFR () 148.5 Estimated GFR (Non- 128.1 BUN/Creatinine Ratio 14.5 (10-20) Calcium Level 9.0 mg/dl (8.5-10.1) Magnesium Level 1.9 mg/dl (1.8-2.4) Total Bilirubin 0.3 mg/dl (0.2-1) Direct Bilirubin < 0.1 mg/dl (0-0.2) Aspartate Amino Transf (AST/SGOT) 24 U/L (15-37) Alanine Aminotransferase (ALT/SGPT) 55 U/L (12-78) Alkaline Phosphatase 74 U/L (45-117) Troponin I < 0.015 ng/ml (0-0.045) Total Protein 8.5 gm/dl (6.4-8.2) Albumin 4.5 gm/dl (3.4-5.0) Thyroid Stimulating Hormone (TSH) 2.040 uIu/ml (0.300-4.500) Human Chorionic Gonadotropin, Qual NEG (NEG) Urine Color YELLOW Urine Appearance CLEAR (CLEAR) Urine pH 7.5 (4.5-7.5) Urine Specific [place] 1.017 (1.000-1.030) Urine Protein NEG (NEG) Urine Glucose (UA) 1+ (NEG) Urine Ketones 1+ (NEG) Urine Occult Blood NEG (NEG) Urine Nitrite NEG (NEG) Urine Bilirubin NEG (NEG) Urine Urobilinogen NEG (NEG) Urine Leukocyte Esterase NEG (NEG) Urine Opiates Screen NEG (NEG) Urine Methadone, Qualitative NEG (NEG) Urine Barbiturates POS (NEG) Urine Phencyclidine (PCP) Level NEG (NEG) Ur Amphetamine/Methamphetamine NEG (NEG) MDMA (Ecstasy) Screen NEG (NEG) Urine Benzodiazepines Screen NEG (NEG) Urine Cocaine Metabolite NEG (NEG) Urine Marijuana (THC) NEG (NEG) Laboratory results per my review. Medications Administered Medications (Trade) Dose Ordered Sig/Song Route Start Time Stop Time Status Last Admin Dose Admin Ketorolac Tromethamine (Toradol Inj) 30 mg NOW STAT IV 10/16/17 16:36 10/16/17 16:37 DC 10/16/17 17:04 30 MG ECG Per My Interpretation Indication: weakness Rate (beats per minute): 112 Rhythm: sinus tachycardia Findings: no ectopy, other (no acute ST segment abnormalities) Change: no significant change (from 10/08/17) ED Course 1455: The patient was evaluated in room B12B. A complete history and physical examination were performed. 1635: Upon reevaluation, the patient is resting. I discussed the results and treatment plan with her. She verbalized agreement of the treatment plan. She was discharged home. Medical Decision Differential diagnosis: Etiologies such as metabolic, infection, hypo/hyperglycemia, electrolyte abnormalities, cardiac sources, intracerebral event, toxicologic, neurologic, as well as others were entertained. Nursing notes reviewed. Patient's previous electronic medical records reviewed. The patient is a 32-year-old female who was sent to the emergency department by her primary care physician for spasming in her left upper extremity. The patient does have a history of neurofibromatosis. She was recently worked up for a full neurologic evaluation. The patient's radiographic laboratory studies do not show any significant changes. I discussed patient's laboratory and radiographic studies with her. She was encouraged to continue all medications as prescribed and rest. She was also encouraged to follow-up with her primary care physician as soon as possible otherwise return to the emergency department immediately if symptoms change worsen or the need arises. Medication Reconcilliation Current Medication List: was personally reviewed by me Blood Pressure Screening Patient's blood pressure: Normal blood pressure Impression Primary Impression: Muscle spasm Scribe Attestation The scribe's documentation has been prepared under my direction and personally reviewed by me in its entirety. I confirm that the note above accurately reflects all work, treatment, procedures, and medical decision making performed by me. Departure Information Dispostion Home / Self-Care Referrals Ida Garcia DO (PCP) Patient Instructions Muscle Spasm, My [facility] Additional Instructions Continue all medications as prescribed. Call your family doctor to schedule a follow-up appointment.
--- NOTE | 2017-10-16 15:14 | DIAGNOSTIC IMAGING REPORT ---
CHEST ONE VIEW PORTABLE CLINICAL HISTORY: EVALUATE ALTERED MENTAL STATUS/WEAKNESS dyspnea COMPARISON STUDY: 10/08/2017 FINDINGS: The bones soft tissues and hemidiaphragms are normal. The cardiomediastinal silhouette is normal. The lungs are clear. The pulmonary vasculature is normal. IMPRESSION: Negative chest. The above report was generated using voice recognition software. It may contain grammatical, syntax or spelling errors. Electronically signed by: Miko Lee M.D. 10/16/2017 3:13 PM Dictated Date/Time: 10/16/2017 3:12 PM
[2017-10-16 15:40] VITALS: O2SAT 100; Ht 151.1 cm; Wt 49.9 kg
[2017-10-16 15:41] LABS: BASO % 0.1 %; BASO ABS # 0.01 K/uL (0-0.2); EOS % 0.2 %; EOS ABS # 0.03 K/uL (0-0.5); HEMATOCRIT 41.6 % (37-47); HEMOGLOBIN 14.6 g/dL (12.0-16.0); IG# 0.13 K/uL (0.00-0.02); LYMPH % 15.4 %; LYMPH ABS # 2.58 K/uL (1.2-3.4); MEAN CORPUSCULAR HEMOGLOBIN 29.5 pg (25-34); MEAN CORPUSCULAR HGB CONC 35.1 g/dl (32-36); MEAN PLATELET VOLUME 10.5 fL (7.4-10.4); MONO % 5.2 %; MONO ABS # 0.88 K/uL (0.11-0.59); NEUT % 78.3 %; NEUT ABS # 13.15 K/uL (1.4-6.5); PLATELET COUNT 302 K/uL (130-400); RED CELL DISTRIBUTION WIDTH CV 13.4 % (11.5-14.5); RED CELL DISTRIBUTION WIDTH SD 40.4 fL (36.4-46.3); WHITE BLOOD COUNT 16.78 K/uL (4.8-10.8)
[2017-10-16 15:52] LABS: PTT PATIENT 24.2 SECONDS (21.0-31.0)
[2017-10-16 15:54] LABS: ALBUMIN 4.5 gm/dl (3.4-5.0); ALT/SGPT 55 U/L (12-78); AST/SGOT 24 U/L (15-37); BLOOD UREA NITROGEN 7 mg/dl (7-18); CARBON DIOXIDE 22 mmol/L (21-32); CREATININE 0.51 mg/dl (0.60-1.20); GLUCOSE 161 mg/dl (70-99); POTASSIUM 3.5 mmol/L (3.5-5.1); SODIUM 133 mmol/L (136-145)
[2017-10-16 16:05] LABS: ALKALINE PHOSPHATASE 74 U/L (45-117); TOTAL PROTEIN 8.5 gm/dl (6.4-8.2)
--- NOTE | 2017-10-16 16:10 | DIAGNOSTIC IMAGING REPORT ---
CT HEAD WITHOUT CONTRAST (CT) CLINICAL HISTORY: Altered mental status. Weakness. COMPARISON STUDY: 10/09/2017 TECHNIQUE: Axial CT of the brain is performed from the vertex to the skull base. IV contrast was not administered for this examination. A dose lowering technique was utilized adhering to the principles of ALARA. CT DOSE: 537.48 mGy.cm FINDINGS: No intra or extra-axial mass lesions are visualized. There is no CT evidence of acute cortical infarction. There is no evidence of midline shift. There is no acute hemorrhage. No calvarial fractures are visualized. There is a stable 7 mm right thalamic hyperdense focus, likely calcified. There is no evidence of pathologic ventricular dilatation. There is no evidence of acute sinusitis IMPRESSION: 1. Stable 7 mm hyperdense right thalamic focus, likely calcified 2. No additional findings of significance. Electronically signed by: Migel Martell M.D. 10/16/2017 4:09 PM Dictated Date/Time: 10/16/2017 4:06 PM
[2017-10-16] MEDS ORDERED: KETOROLAC TROMETHAMINE 30 MG/ML VIAL IV STA (16:36)
[2017-10-16 18:00] VITALS: BP 130/93; PULSE 112; O2SAT 99
== END 2017-10-16 18:00 | disposition home or self-care (01) ==
LOC: C.EDB 14:40
DX: M62.838 Other muscle spasm (principal); Z86.69 Personal history of other diseases of the nervous system and sense organs; F17.200 Nicotine dependence, unspecified, uncomplicated; F41.9 Anxiety disorder, unspecified; F32.9 Major depressive disorder, single episode, unspecified; E11.9 Type 2 diabetes mellitus without complications; Z79.4 Long term (current) use of insulin; I10 Essential (primary) hypertension; Z79.3 Long term (current) use of hormonal contraceptives